=== PATIENT | female | born 1935 | race Caucasian/White ===

== ENCOUNTER 2016-05-11 08:00 | Outpatient (CLI) | payer MEDICARE, BC | END 2016-05-11 08:01 | disposition home or self-care (01) | DX: E11.9 Type 2 diabetes mellitus without complications (principal); Z79.899 Other long term (current) drug therapy ==

== ENCOUNTER 2016-11-06 10:44 | Outpatient (CLI) | payer MEDICARE, BC ==
[2016-11-06 13:16] LABS: BASOPHILS # (AUTO) 0.1 10^3/uL (0.0-0.1); BASOPHILS % (AUTO) 1.4 %; EOSINOPHILS # (AUTO) 0.5 10^3/uL (0.0-0.7); EOSINOPHILS % (AUTO) 6.9 %; HCT - HEMATOCRIT 38.5 % (37.0-47.0); HGB - HEMOGLOBIN 12.9 g/dL (12.0-16.0); LYMPHOCYTES # (AUTO) 2.9 10^3/uL (1.5-3.5); LYMPHOCYTES % (AUTO) 38.3 %; MEAN CORPUSCULAR HEMOGLOBIN 31.4 pg (27.0-31.0); MEAN CORPUSCULAR HGB CONC 33.6 g/dL (32.0-36.0); MEAN CORPUSCULAR VOLUME 93.4 fL (81.0-99.0); MEAN PLATELET VOLUME 8.2 fL (7.9-10.8); MONOCYTES # (AUTO) 0.6 10^3/uL (0.0-1.0); MONOCYTES % (AUTO) 8.4 %; NEUTROPHILS # (AUTO) 3.4 10^3/uL (1.5-6.6); RED BLOOD COUNT 4.12 10^6/uL (4.20-5.40); RED CELL DISTRIBUTION WIDTH 12.3 % (12.0-15.0); UNCORRECTED WHITE BLOOD COUNT 7.7 x10^3/uL; WHITE BLOOD COUNT 7.7 x10^3/uL (4.8-10.8)
[2016-11-06 13:36] LABS: ALBUMIN/GLOBULIN RATIO 0.9 (1.0-2.2); BILIRUBIN,TOTAL 0.5 mg/dL (0.2-1.0); BUN - BLOOD UREA NITROGEN 15 mg/dL (6-20); CALCIUM 9.4 mg/dL (8.5-10.3); CARBON DIOXIDE - CO2 26 mmol/L (21-32); CHLORIDE 104 mmol/L (101-111); CHOLESTEROL 121 mg/dL; CREATININE 0.5 mg/dL (0.4-1.0); GFR - MDRD 118 (>89); GLUCOSE 122 mg/dL (70-100); HDL CHOLESTEROL 40 mg/dL; LDL/HDL RATIO 1.3 (<4.4); POTASSIUM 3.9 mmol/L (3.5-5.0); SODIUM 139 mmol/L (135-145); TOTAL PROTEIN 8.1 g/dL (6.7-8.2); TRIGLYCERIDES 150 mg/dL; VLDL CHOLESTEROL 30 mg/dL
[2016-11-06 13:40] LABS: HEMOGLOBIN A1C 0.62 g/dL
== END 2016-11-06 10:45 | disposition home or self-care (01) ==
LOC: LAB.N 10:44
PROVIDERS: ATTEND Physician Assistant Medical
DX: M81.0 Age-related osteoporosis without current pathological fracture (principal); E11.9 Type 2 diabetes mellitus without complications; Z79.899 Other long term (current) drug therapy
CPT/HCPCS: 36415; 80053; 80061; 83036; 84443; 85025

== ENCOUNTER 2016-11-15 14:23 | Outpatient (CLI) | payer MEDICARE, BC | END 2016-11-15 14:24 | LOC: LAB.R 14:23 | PROVIDERS: ATTEND Physician Assistant Medical | DX: E11.9 Type 2 diabetes mellitus without complications (principal) | CPT/HCPCS: 82043 ==

== ENCOUNTER 2016-11-15 14:36 | Outpatient (CLI) | payer MEDICARE, BC ==
--- NOTE | 2016-11-16 09:02 | XRAY Report ---
TWO-VIEW CHEST: 11/15/2016 CLINICAL INDICATION: Abnormal breath sounds. COMPARISON: 07/22/2015 FINDINGS: Frontal and lateral views of the chest demonstrate a normal cardiac silhouette. Extensive pulmonary fibrosis is present. No effusion or pneumothorax is present. IMPRESSION: EXTENSIVE PULMONARY FIBROSIS. NO EVIDENCE OF ACUTE CARDIOPULMONARY DISEASE. JOB #: [id number] EXT JOB #:[id number]
== END 2016-11-15 14:37 | disposition home or self-care (01) ==
LOC: LAB 14:36 → DI 14:37
PROVIDERS: ATTEND Physician Assistant Medical
DX: J84.10 Pulmonary fibrosis, unspecified (principal)
CPT/HCPCS: 71020; 82043

== ENCOUNTER 2016-12-29 09:35 | Outpatient (CLI) | payer MEDICARE, BC ==
[2016-12-29 13:40] LABS: BASOPHILS # (AUTO) 0.1 10^3/uL (0.0-0.1); BASOPHILS % (AUTO) 1.5 %; EOSINOPHILS # (AUTO) 0.5 10^3/uL (0.0-0.7); EOSINOPHILS % (AUTO) 5.6 %; HCT - HEMATOCRIT 40.2 % (37.0-47.0); HGB - HEMOGLOBIN 13.3 g/dL (12.0-16.0); LYMPHOCYTES # (AUTO) 3.3 10^3/uL (1.5-3.5); LYMPHOCYTES % (AUTO) 37.2 %; MEAN CORPUSCULAR HGB CONC 33.1 g/dL (32.0-36.0); MEAN CORPUSCULAR VOLUME 93.9 fL (81.0-99.0); MEAN PLATELET VOLUME 8.6 fL (7.9-10.8); MONOCYTES # (AUTO) 0.7 10^3/uL (0.0-1.0); MONOCYTES % (AUTO) 8.4 %; NEUTROPHILS # (AUTO) 4.1 10^3/uL (1.5-6.6); NEUTROPHILS % (AUTO) 47.3 %; NUCLEATED RED BLOOD CELLS AUTO 0.1 /100WBC; RED BLOOD COUNT 4.28 10^6/uL (4.20-5.40); RED CELL DISTRIBUTION WIDTH 12.8 % (12.0-15.0); UNCORRECTED WHITE BLOOD COUNT 8.7 x10^3/uL; WHITE BLOOD COUNT 8.7 x10^3/uL (4.8-10.8)
[2016-12-29 14:18] LABS: BILIRUBIN,TOTAL 0.7 mg/dL (0.2-1.0); CALCIUM 9.4 mg/dL (8.5-10.3); CREATININE 0.6 mg/dL (0.4-1.0); POTASSIUM 4.2 mmol/L (3.5-5.0); TOTAL PROTEIN 8.1 g/dL (6.7-8.2)
== END 2016-12-29 09:36 | disposition home or self-care (01) ==
LOC: LAB.N 09:35
PROVIDERS: ATTEND Physician Assistant
DX: L29.8 Other pruritus (principal); Z71.89 Other specified counseling; L40.0 Psoriasis vulgaris; Z79.899 Other long term (current) drug therapy
CPT/HCPCS: 36415; 80053; 85025

== ENCOUNTER 2017-01-23 15:08 | Outpatient (CLI) | payer MEDICARE, BC ==
[2017-01-23 13:03] LABS: BASOPHILS # (AUTO) 0.1 10^3/uL (0.0-0.1); EOSINOPHILS # (AUTO) 0.5 10^3/uL (0.0-0.7); EOSINOPHILS % (AUTO) 4.6 %; HCT - HEMATOCRIT 38.3 % (37.0-47.0); HGB - HEMOGLOBIN 12.9 g/dL (12.0-16.0); LYMPHOCYTES # (AUTO) 4.4 10^3/uL (1.5-3.5); LYMPHOCYTES % (AUTO) 45.3 %; MEAN CORPUSCULAR HEMOGLOBIN 31.4 pg (27.0-31.0); MEAN CORPUSCULAR HGB CONC 33.8 g/dL (32.0-36.0); MEAN CORPUSCULAR VOLUME 92.9 fL (81.0-99.0); MEAN PLATELET VOLUME 8.3 fL (7.9-10.8); MONOCYTES # (AUTO) 0.8 10^3/uL (0.0-1.0); MONOCYTES % (AUTO) 8.5 %; NEUTROPHILS % (AUTO) 40.6 %; NUCLEATED RED BLOOD CELLS AUTO 0.1 /100WBC; RED BLOOD COUNT 4.12 10^6/uL (4.20-5.40); RED CELL DISTRIBUTION WIDTH 12.6 % (12.0-15.0); UNCORRECTED WHITE BLOOD COUNT 9.8 x10^3/uL; WHITE BLOOD COUNT 9.8 x10^3/uL (4.8-10.8)
[2017-01-23 13:04] LABS: ALBUMIN/GLOBULIN RATIO 0.9 (1.0-2.2); BILIRUBIN,TOTAL 0.8 mg/dL (0.2-1.0); CALCIUM 9.4 mg/dL (8.5-10.3); CREATININE 0.6 mg/dL (0.4-1.0); POTASSIUM 3.8 mmol/L (3.5-5.0); TOTAL PROTEIN 8.3 g/dL (6.7-8.2)
== END 2017-01-23 15:09 | disposition home or self-care (01) ==
LOC: LAB.N 15:08
PROVIDERS: ATTEND Physician Assistant
DX: L29.8 Other pruritus (principal); Z71.89 Other specified counseling; L40.0 Psoriasis vulgaris; Z79.899 Other long term (current) drug therapy
CPT/HCPCS: 36415; 80053; 85025

== ENCOUNTER 2017-02-26 09:43 | Outpatient (CLI) | payer MEDICARE, BC ==
[2017-02-26 13:11] LABS: BASOPHILS # (AUTO) 0.1 10^3/uL (0.0-0.1); EOSINOPHILS # (AUTO) 0.6 10^3/uL (0.0-0.7); EOSINOPHILS % (AUTO) 6.5 %; HCT - HEMATOCRIT 37.9 % (37.0-47.0); HGB - HEMOGLOBIN 12.6 g/dL (12.0-16.0); LYMPHOCYTES # (AUTO) 3.5 10^3/uL (1.5-3.5); MEAN CORPUSCULAR HEMOGLOBIN 31.5 pg (27.0-31.0); MEAN CORPUSCULAR HGB CONC 33.2 g/dL (32.0-36.0); MEAN CORPUSCULAR VOLUME 94.9 fL (81.0-99.0); MEAN PLATELET VOLUME 8.2 fL (7.9-10.8); MONOCYTES # (AUTO) 0.6 10^3/uL (0.0-1.0); MONOCYTES % (AUTO) 6.9 %; NEUTROPHILS % (AUTO) 45.6 %; NUCLEATED RED BLOOD CELLS AUTO 0.1 /100WBC; RED BLOOD COUNT 3.99 10^6/uL (4.20-5.40); RED CELL DISTRIBUTION WIDTH 12.8 % (12.0-15.0); UNCORRECTED WHITE BLOOD COUNT 8.8 x10^3/uL; WHITE BLOOD COUNT 8.8 x10^3/uL (4.8-10.8)
[2017-02-26 13:35] LABS: BILIRUBIN,TOTAL 0.6 mg/dL (0.2-1.0); CALCIUM 9.2 mg/dL (8.5-10.3); CREATININE 0.6 mg/dL (0.4-1.0); POTASSIUM 3.8 mmol/L (3.5-5.0); TOTAL PROTEIN 7.9 g/dL (6.7-8.2)
== END 2017-02-26 09:44 ==
LOC: LAB.N 09:43
PROVIDERS: ATTEND Physician Assistant
DX: L29.8 Other pruritus (principal); Z71.89 Other specified counseling; L40.0 Psoriasis vulgaris; Z79.899 Other long term (current) drug therapy
CPT/HCPCS: 36415; 80053; 85025

== ENCOUNTER 2017-03-26 10:05 | Outpatient (CLI) | payer MEDICARE, BC ==
[2017-03-26 13:24] LABS: BASOPHILS # (AUTO) 0.1 10^3/uL (0.0-0.1); BASOPHILS % (AUTO) 1.3 %; EOSINOPHILS # (AUTO) 0.6 10^3/uL (0.0-0.7); EOSINOPHILS % (AUTO) 6.7 %; HCT - HEMATOCRIT 37.6 % (37.0-47.0); HGB - HEMOGLOBIN 12.8 g/dL (12.0-16.0); LYMPHOCYTES # (AUTO) 3.2 10^3/uL (1.5-3.5); LYMPHOCYTES % (AUTO) 38.9 %; MEAN CORPUSCULAR HEMOGLOBIN 32.5 pg (27.0-31.0); MEAN CORPUSCULAR VOLUME 95.7 fL (81.0-99.0); MEAN PLATELET VOLUME 8.5 fL (7.9-10.8); MONOCYTES # (AUTO) 0.6 10^3/uL (0.0-1.0); MONOCYTES % (AUTO) 6.9 %; NEUTROPHILS # (AUTO) 3.8 10^3/uL (1.5-6.6); NEUTROPHILS % (AUTO) 46.2 %; RED BLOOD COUNT 3.93 10^6/uL (4.20-5.40); RED CELL DISTRIBUTION WIDTH 13.2 % (12.0-15.0); UNCORRECTED WHITE BLOOD COUNT 8.3 x10^3/uL; WHITE BLOOD COUNT 8.3 x10^3/uL (4.8-10.8)
[2017-03-26 13:59] LABS: ALBUMIN/GLOBULIN RATIO 0.9 (1.0-2.2); BILIRUBIN,TOTAL 0.5 mg/dL (0.2-1.0); CALCIUM 9.2 mg/dL (8.5-10.3); CREATININE 0.6 mg/dL (0.4-1.0); POTASSIUM 3.6 mmol/L (3.5-5.0); TOTAL PROTEIN 8.2 g/dL (6.7-8.2)
== END 2017-03-26 10:06 | disposition home or self-care (01) ==
LOC: LAB.N 10:05
PROVIDERS: ATTEND Physician Assistant
DX: L29.8 Other pruritus (principal); Z71.89 Other specified counseling; L40.0 Psoriasis vulgaris; Z79.899 Other long term (current) drug therapy
CPT/HCPCS: 36415; 80053; 85025

== ENCOUNTER 2017-05-01 08:00 | Outpatient (CLI) | payer MEDICARE, BC ==
[2017-05-01 12:40] LABS: BASOPHILS # (AUTO) 0.1 10^3/uL (0.0-0.1); BASOPHILS % (AUTO) 1.1 %; EOSINOPHILS # (AUTO) 0.5 10^3/uL (0.0-0.7); EOSINOPHILS % (AUTO) 6.6 %; HGB - HEMOGLOBIN 12.7 g/dL (12.0-16.0); LYMPHOCYTES # (AUTO) 2.9 10^3/uL (1.5-3.5); LYMPHOCYTES % (AUTO) 36.7 %; MEAN CORPUSCULAR HEMOGLOBIN 32.7 pg (27.0-31.0); MEAN CORPUSCULAR VOLUME 96.1 fL (81.0-99.0); MONOCYTES # (AUTO) 0.6 10^3/uL (0.0-1.0); MONOCYTES % (AUTO) 6.9 %; NEUTROPHILS # (AUTO) 3.9 10^3/uL (1.5-6.6); NEUTROPHILS % (AUTO) 48.7 %; PLT - PLATELET COUNT 285 10^3/uL (130-450); RED BLOOD COUNT 3.88 10^6/uL (4.20-5.40)
[2017-05-01 13:24] LABS: BILIRUBIN,TOTAL 0.6 mg/dL (0.2-1.0); CREATININE 0.6 mg/dL (0.4-1.0)
== END 2017-05-01 08:01 | disposition home or self-care (01) ==
LOC: LAB.N 08:00
PROVIDERS: ATTEND Physician Assistant
DX: L29.8 Other pruritus (principal); Z71.89 Other specified counseling; L40.0 Psoriasis vulgaris; Z79.899 Other long term (current) drug therapy
CPT/HCPCS: 36415; 80053; 85025

== ENCOUNTER 2017-05-30 09:43 | Outpatient (CLI) | payer MEDICARE, BC ==
[2017-05-30 13:13] LABS: BASOPHILS # (AUTO) 0.1 10^3/uL (0.0-0.1); BASOPHILS % (AUTO) 1.3 %; EOSINOPHILS # (AUTO) 0.5 10^3/uL (0.0-0.7); EOSINOPHILS % (AUTO) 6.7 %; HGB - HEMOGLOBIN 13.5 g/dL (12.0-16.0); LYMPHOCYTES # (AUTO) 2.4 10^3/uL (1.5-3.5); LYMPHOCYTES % (AUTO) 30.2 %; MEAN CORPUSCULAR HEMOGLOBIN 32.6 pg (27.0-31.0); MEAN CORPUSCULAR VOLUME 95.7 fL (81.0-99.0); MEAN PLATELET VOLUME 8.1 fL (7.9-10.8); MONOCYTES # (AUTO) 0.5 10^3/uL (0.0-1.0); MONOCYTES % (AUTO) 6.1 %; NEUTROPHILS # (AUTO) 4.4 10^3/uL (1.5-6.6); NEUTROPHILS % (AUTO) 55.7 %; PLT - PLATELET COUNT 298 10^3/uL (130-450); RED BLOOD COUNT 4.15 10^6/uL (4.20-5.40); RED CELL DISTRIBUTION WIDTH 12.6 % (12.0-15.0); WHITE BLOOD COUNT 7.9 x10^3/uL (4.8-10.8)
[2017-05-30 13:51] LABS: BILIRUBIN,TOTAL 0.7 mg/dL (0.2-1.0); CALCIUM 9.7 mg/dL (8.5-10.3); CREATININE 0.5 mg/dL (0.4-1.0); TOTAL PROTEIN 8.2 g/dL (6.7-8.2)
== END 2017-05-30 09:44 | disposition home or self-care (01) ==
LOC: LAB.N 09:43
PROVIDERS: ATTEND Physician Assistant
DX: L29.8 Other pruritus (principal); L40.0 Psoriasis vulgaris; Z79.899 Other long term (current) drug therapy; Z71.89 Other specified counseling
CPT/HCPCS: 36415; 80053; 85025

== ENCOUNTER 2017-06-25 08:00 | Outpatient (CLI) | payer MEDICARE, BC ==
[2017-06-25 18:46] LABS: BASOPHILS # (AUTO) 0.1 10^3/uL (0.0-0.1); BASOPHILS % (AUTO) 1.1 %; EOSINOPHILS # (AUTO) 0.5 10^3/uL (0.0-0.7); EOSINOPHILS % (AUTO) 6.1 %; HGB - HEMOGLOBIN 13.2 g/dL (12.0-16.0); LYMPHOCYTES # (AUTO) 2.5 10^3/uL (1.5-3.5); LYMPHOCYTES % (AUTO) 29.9 %; MEAN CORPUSCULAR HEMOGLOBIN 31.7 pg (27.0-31.0); MEAN CORPUSCULAR HGB CONC 32.4 g/dL (32.0-36.0); MEAN PLATELET VOLUME 8.3 fL (7.9-10.8); MONOCYTES # (AUTO) 0.7 10^3/uL (0.0-1.0); MONOCYTES % (AUTO) 8.4 %; NEUTROPHILS # (AUTO) 4.5 10^3/uL (1.5-6.6); NEUTROPHILS % (AUTO) 54.5 %; PLT - PLATELET COUNT 293 10^3/uL (130-450); RED BLOOD COUNT 4.17 10^6/uL (4.20-5.40); RED CELL DISTRIBUTION WIDTH 12.9 % (12.0-15.0); WHITE BLOOD COUNT 8.2 x10^3/uL (4.8-10.8)
[2017-06-25 19:23] LABS: ALBUMIN 3.9 g/dL (3.2-5.5); ALBUMIN/GLOBULIN RATIO 0.9 (1.0-2.2); BILIRUBIN,TOTAL 0.5 mg/dL (0.2-1.0); CALCIUM 9.8 mg/dL (8.5-10.3); CREATININE 0.5 mg/dL (0.4-1.0); TOTAL PROTEIN 8.3 g/dL (6.7-8.2)
== END 2017-06-25 08:01 | disposition home or self-care (01) ==
LOC: LAB.N 08:00
PROVIDERS: ATTEND Physician Assistant
DX: L29.8 Other pruritus (principal); L40.0 Psoriasis vulgaris; Z71.89 Other specified counseling; Z79.899 Other long term (current) drug therapy
CPT/HCPCS: 36415; 80053; 85025

== ENCOUNTER 2017-07-05 08:00 | Outpatient (CLI) | payer MEDICARE, BC | END 2017-07-05 08:01 | disposition home or self-care (01) | LOC: LAB.R 08:00 | PROVIDERS: ATTEND Physician Assistant Medical | DX: N30.00 Acute cystitis without hematuria (principal) | CPT/HCPCS: 87086 ==

== ENCOUNTER 2017-07-05 15:09 | Outpatient (CLI) | payer MEDICARE, BC ==
[2017-07-05 15:34] LABS: BASOPHILS # (AUTO) 0.1 10^3/uL (0.0-0.1); BASOPHILS % (AUTO) 1.2 %; EOSINOPHILS # (AUTO) 0.2 10^3/uL (0.0-0.7); EOSINOPHILS % (AUTO) 2.1 %; HGB - HEMOGLOBIN 13.5 g/dL (12.0-16.0); LYMPHOCYTES # (AUTO) 2.7 10^3/uL (1.5-3.5); LYMPHOCYTES % (AUTO) 28.6 %; MEAN CORPUSCULAR HEMOGLOBIN 32.3 pg (27.0-31.0); MEAN CORPUSCULAR HGB CONC 33.7 g/dL (32.0-36.0); MEAN CORPUSCULAR VOLUME 95.7 fL (81.0-99.0); MEAN PLATELET VOLUME 7.4 fL (7.9-10.8); MONOCYTES # (AUTO) 0.7 10^3/uL (0.0-1.0); MONOCYTES % (AUTO) 6.9 %; NEUTROPHILS # (AUTO) 5.8 10^3/uL (1.5-6.6); NEUTROPHILS % (AUTO) 61.2 %; PLT - PLATELET COUNT 321 10^3/uL (130-450); RED BLOOD COUNT 4.17 10^6/uL (4.20-5.40); RED CELL DISTRIBUTION WIDTH 13.1 % (12.0-15.0); WHITE BLOOD COUNT 9.5 x10^3/uL (4.8-10.8)
[2017-07-05 15:49] LABS: ALBUMIN 4.3 g/dL (3.2-5.5); ALKALINE PHOSPHATASE 54 IU/L (42-121); ALT ALANINE AMINOTRANSFERASE 23 IU/L (10-60); AST ASPARTATE AMINOTRANSFERASE 28 IU/L (10-42); BILIRUBIN,TOTAL 0.5 mg/dL (0.2-1.0); BUN - BLOOD UREA NITROGEN 14 mg/dL (6-20); CALCIUM 9.1 mg/dL (8.5-10.3); CARBON DIOXIDE - CO2 22 mmol/L (21-32); CHLORIDE 103 mmol/L (101-111); CREATININE 0.5 mg/dL (0.4-1.0); GFR - MDRD 118 (>89); GLUCOSE 111 mg/dL (70-100); SODIUM 136 mmol/L (135-145); TOTAL PROTEIN 8.4 g/dL (6.7-8.2)
[2017-07-05 15:51] LABS: HB2 TOTAL 14.5 g/dL; HEMOGLOBIN A1C 0.7 g/dL; HEMOGLOBIN A1C % 6.6 % (4.6-6.2)
[2017-07-05 15:56] LABS: CRP - C-REACTIVE PROTEIN < 1.0 mg/dL (0-1.0)
--- NOTE | 2017-07-05 17:46 | CT Report ---
CT BRAIN WITHOUT CONTRAST: 07/05/2017 CLINICAL INDICATION: Dizziness, slurred speech. TECHNIQUE: Axial CT images of the brain were obtained without intravenous contrast. In accordance with CT protocol optimization, one or more of the following dose reduction techniques were utilized for this exam: Automated exposure control, adjustment of mA and/or KV based on patient size, or use of iterative reconstructive technique. No previous CT is available for comparison. FINDINGS: The ventricles and sulci are normal in size, shape and configuration. The basilar cisterns are patent. There is no evidence of hemorrhage, mass effect, or midline shift. The visualized orbital contents and paranasal sinuses are unremarkable. IMPRESSION: NORMAL CT OF THE HEAD WITHOUT CONTRAST. TD: 07/05/2017 17:45
--- NOTE | 2017-07-05 17:51 | XRAY Report ---
TWO VIEW CHEST: 07/05/2017 CLINICAL INDICATION: Wheezing, weakness. COMPARISON: 11/15/2016 FINDINGS: Frontal and lateral views of the chest demonstrate a normal cardiac silhouette. Extensive pulmonary fibrosis is again seen. There are increasing parenchymal opacities in the lateral right upper lobe and lateral left upper lobe, suspicious for superimposed infiltrates. No effusion or pneumothorax is present. IMPRESSION: POSSIBLE PATCHY SUPERIMPOSED INFILTRATES IN THE UPPER LOBES, WITH EXTENSIVE BACKGROUND FIBROSIS. TD: 07/05/2017 17:50
== END 2017-07-05 15:10 | disposition home or self-care (01) ==
LOC: DI 15:09
PROVIDERS: ATTEND Physician Assistant Medical
DX: R06.2 Wheezing (principal); R47.81 Slurred speech; R42 Dizziness and giddiness; Z79.899 Other long term (current) drug therapy; E11.9 Type 2 diabetes mellitus without complications; J84.10 Pulmonary fibrosis, unspecified; N30.00 Acute cystitis without hematuria
CPT/HCPCS: 36415; 70450; 71046; 80053; 83036; 84443; 85025; 85651; 86140; 87086

== ENCOUNTER 2017-07-14 21:25 | Outpatient (CLI) | payer MEDICARE, BC | END 2017-07-14 21:26 | disposition critical access hospital (66) | LOC: EMS 21:25 | PROVIDERS: ATTEND Surgery | DX: R42 Dizziness and giddiness (principal) | CPT/HCPCS: A0425; A0429 ==

== ENCOUNTER 2017-07-14 21:39 | Emergency (ER) | payer MEDICARE, BC ==
--- NOTE | 2017-07-14 22:27 | ED Physician Documentation ---
History of Present Illness - Stated complaint Stated Complaint: DIZZY - Chief complaint Chief Complaint: Neuro - History obtained from History obtained from: Patient - History of Present Illness Timing: Today Pain level max: 0 Pain level now: 0 Improved by: lying still, eyes closed Worsened by: moving head - Additonal information Additional information: patient complains of sudden onset of dizziness associated with nausea and vomiting. She feels as if both ears are plugged, and is experiencing ringing in the ears. Symptoms started to three hours prior to arrival. Denies history of similar symptoms. Review of Systems Constitutional: denies: Fever Eyes: reports: Reviewed and negative Ears: reports: Loss of hearing (decreased, like theyre clogged (per patient)) , Tinnitus/ringing. 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 - Present Medications Home Medications: Ambulatory Orders Medication Instructions Recorded Confirmed Aspirin [Aspir-Low] 81 mg DAILY 07/22/15 07/14/17 Desipramine HCl 0.5 tab TID 07/22/15 10/23/15 Metoprolol Tartrate 25 mg DAILY 07/22/15 07/14/17 Multivitamin [Multivitamins] 1 tab DAILY 07/22/15 10/23/15 Omeprazole [PriLOSEC] 20 mg DAILY 07/22/15 07/14/17 Cephalexin [Keflex] 500 mg PO QID 7 Days capsule 10/23/15 Atorvastatin [Lipitor] 20 mg 07/14/17 Desipramine HCl [Desipramine HCl] 1 tab PO DAILY 07/14/17 07/14/17 metFORMIN [Glucophage] 500 mg PO DAILY 07/14/17 07/14/17 Meclizine [Antivert] 25 mg PO Q6H PRN #20 tablet 07/15/17 Ondansetron Odt [Zofran] 4 mg TL Q6H PRN #14 tablet 07/15/17 - Allergies Allergies/Adverse Reactions: Allergies Allergy/AdvReac Type Severity Reaction Status Date / Time codeine Allergy Unknown Verified 10/23/15 18:07 Penicillins Allergy Unknown Verified 10/23/15 18:07 sulfamethoxazole Allergy Unknown Verified 10/23/15 18:07 [From ] trimethoprim [From ] Allergy Unknown Verified 10/23/15 18:07 - Social History Does the pt smoke?: No Smoking Status: Former smoker Does the pt drink ETOH?: Yes Does the pt have substance abuse?: No PD ED PE NORMAL - Vitals Vital signs reviewed: Yes - General General: Alert and oriented X 3, Well developed/nourished, Other (keeps eyes closed throughout most of H&P and keeps head still) - HEENT HEENT: PERRL, EOMI, Ears normal, Moist mucous membranes, Pharynx benign, Other ( several beats of nystagmus with rightward gaze) - Neck Neck: Supple, no meningeal sign - Cardiac Cardiac: RRR, No murmur - Respiratory Respiratory: No respiratory distress, Clear bilaterally Results - Vitals Vitals: Oxygen O2 Source Room air - EKG (time done) No standard instances Rate: Rate (enter#) (87) Rhythm: NSR [place]: LAD Intervals: Normal OR QRS: Normal Ischemia: Normal ST segments, Q waves (II, aVF) PD MEDICAL DECISION MAKING - ED course Complexity details: reviewed results, re-evaluated patient, considered differential, d/w patient ED course: significant improvement after antivert and zofran. she was able to open eyes, move her head, and ambulate with minimal assistance to bathroom. given repeat doses of both medications for mild residual symptoms prior to discharge Departure - Departure Disposition: 01 Home, Self Care Clinical Impression: Vertigo Condition: Good Instructions: Meclizine, ED Vertigo Unspecified Prescriptions: Meclizine [Antivert] 25 mg PO Q6H PRN #20 tablet PRN Reason: Vertigo Ondansetron Odt [Zofran] 4 mg TL Q6H PRN #14 tablet PRN Reason: Nausea / Vomiting Comments: Follow up with your primary care provider as scheduled. Discharge Date/Time: 07/15/17 00:44
[2017-07-14] MEDS ORDERED: ONDANSETRON ODT 4 MG TABLET TL STA (22:51)
[2017-07-14] MEDS ORDERED: MECLIZINE 12.5 MG TABLET PO STA (22:51)
[2017-07-15] MEDS ORDERED: ONDANSETRON ODT 4 MG TABLET TL STA (00:31)
[2017-07-15] MEDS ORDERED: MECLIZINE 12.5 MG TABLET PO STA (00:31)
[2017-07-15 00:44] VITALS: BP 147/78
== END 2017-07-15 00:44 | disposition home or self-care (01) ==
LOC: EDUNIT# → ED 21:39
DX: R42 Dizziness and giddiness (principal); I10 Essential (primary) hypertension; E78.00 Pure hypercholesterolemia, unspecified; Z79.82 Long term (current) use of aspirin; Z87.891 Personal history of nicotine dependence
CPT/HCPCS: 93005; 99283; A9270; Q0162

== ENCOUNTER 2017-07-20 16:43 | Outpatient (CLI) | payer MEDICARE, BC ==
--- NOTE | 2017-07-21 17:24 | Ultrasound Report ---
EXAM: CAROTID DOPPLER ULTRASOUND EXAM DATE: 07/20/2017 05:08 PM. CLINICAL HISTORY: Slurred speech, dizziness. COMPARISON: CT head without contrast 07/05/2017. TECHNIQUE: Real-time sonographic vascular imaging was performed by the unisaw operator through the caroti d arterial system with a linear transducer utilizing color-flow, Doppler flow and spectral analysis. Multiple novelties sales representative static images were saved for review. FINDINGS: Right: No appreciable soft or calcific plaque involving the CCA or ICA. Minimal calcific plaque prese nt within the ECA which is patent. Flow within the vertebral artery is antegrade. Left: Minimal calcific and soft plaque within the common carotid artery, predominating near the carot id bulb. No significant plaque within the internal carotid artery. The ECA is patent. Flow within the vertebral artery is antegrade. RIGHT: RCCA Prox: PSV 91.8 cm/sec. RCCA Dist: PSV 87 cm/sec, EDV 21 cm/sec. RECA: PSV 114 cm/sec. R Bulb: PSV 79 cm/sec, EDV 16 cm/sec, ICA/CCA ratio 0.09. KJ Prox: PSV 77 cm/sec, EDV 24 cm/sec, ICA/CCA ratio 0.88. KJ Mid: PSV 81 cm/sec, EDV 25 cm/sec, ICA/CCA ratio 0.93. KJ Dist: PSV 65 cm/sec, EDV 24 cm/sec, ICA/CCA ratio 0.74. RVA: PSV 87 cm/sec. RVA flow direction: Antegrade. LEFT: LCCA Prox: PSV 55077 cm/sec. LCCA Dist: PSV 89 cm/sec, EDV 23 cm/sec. LECA: PSV 109 cm/sec. L Bulb: PSV 79 cm/sec, EDV 22 cm/sec, ICA/CCA ratio 0.88. LICA Prox: PSV 87 cm/sec, EDV 28 cm/sec, ICA/CCA ratio 0.97. LICA Mid: PSV 103 cm/sec, EDV 35 cm/sec, ICA/CCA ratio 1.15. LICA Dist: PSV 82 cm/sec, EDV 27 cm/sec, ICA/CCA ratio 0.92. LVA: PSV 88 cm/sec. LVA flow direction: Antegrade. Other: Incidental note is made of lack of flow within the right internal jugular vein which appears a ttenuated with hyperechoic material within the lumen suggesting chronic thrombosis. IMPRESSION: 1. No hemodynamically significant carotid artery stenoses. 2. 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 Validated velocity measurements with angiographic measurements and velocity criteria are extrapolated from diameter data as defined by the Society of Radiologists in Ultrasound Consensus Conference Radi ology 2003; 229;340-346. [facility] Referring Provider Line: [phone] SITE ID: [id number]
== END 2017-07-20 16:44 | disposition home or self-care (01) ==
LOC: DI 16:43
PROVIDERS: ATTEND Physician Assistant Medical
DX: R47.81 Slurred speech (principal); R42 Dizziness and giddiness
CPT/HCPCS: 93880

== ENCOUNTER 2017-07-27 09:29 | Outpatient (CLI) | payer MEDICARE, BC | END 2017-07-27 09:30 | disposition home or self-care (01) | LOC: LAB.N 09:29 | PROVIDERS: ATTEND Physician Assistant Medical | DX: I82.C21 Chronic embolism and thrombosis of right internal jugular vein (principal); Z79.01 Long term (current) use of anticoagulants | CPT/HCPCS: 85610 ==

== ENCOUNTER 2017-07-31 08:00 | Outpatient (CLI) | payer MEDICARE, BC | END 2017-07-31 08:01 | LOC: LAB.N 08:00 | PROVIDERS: ATTEND Physician Assistant Medical | DX: I82.C21 Chronic embolism and thrombosis of right internal jugular vein (principal); Z79.01 Long term (current) use of anticoagulants | CPT/HCPCS: 85610 ==

== ENCOUNTER 2017-08-07 08:00 | Outpatient (CLI) | payer MEDICARE, BC | END 2017-08-07 08:01 | disposition home or self-care (01) | LOC: LAB.N 08:00 | PROVIDERS: ATTEND Physician Assistant Medical | DX: I82.C21 Chronic embolism and thrombosis of right internal jugular vein (principal); Z79.01 Long term (current) use of anticoagulants | CPT/HCPCS: 85610 ==

== ENCOUNTER 2017-08-14 13:47 | Outpatient (CLI) | payer MEDICARE, BC | END 2017-08-14 13:48 | LOC: LAB.N 13:47 | PROVIDERS: ATTEND Physician Assistant Medical | DX: I82.C21 Chronic embolism and thrombosis of right internal jugular vein (principal); Z79.01 Long term (current) use of anticoagulants | CPT/HCPCS: 85610 ==

== ENCOUNTER 2017-08-17 13:46 | Outpatient (CLI) | payer MEDICARE, BC ==
[2017-08-17 14:09] LABS: CREATININE 0.5 mg/dL (0.4-1.0)
[2017-08-17] MEDS ORDERED: IOPAMIDOL-300 50 ML VIAL ONE (14:17)
[2017-08-17] MEDS ORDERED: IOPAMIDOL-300 100 ML VIAL ONE (14:17)
[2017-08-17] MEDS ORDERED: IOPAMIDOL-300 100 ML VIAL IVP ONE (15:46)
[2017-08-17] MEDS ORDERED: IOPAMIDOL-300 50 ML VIAL PO ONE (15:46)
--- NOTE | 2017-08-17 19:09 | CT Report ---
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 TECHNIQUE: Axial CT images of the chest were obtained with 100 mL Isovue 300 intravenously. In accordance with CT protocol optimization, one or more of the following dose reduction techniques were utilized for this exam: Automated exposure control, adjustment of mA and/or KV based on patient size, or use of iterative reconstructive technique. No previous chest CT is available for comparison. FINDINGS: The heart and great vessels demonstrate mild atherosclerotic calcification. No hilar or mediastinal lymphadenopathy is present. The lungs demonstrate extensive peripheral fibrosis. No suspicious pulmonary nodule or mass lesion is appreciated. No effusion or pneumothorax is present. Osseous structures demonstrate degenerative changes. IMPRESSION: EXTENSIVE PULMONARY FIBROSIS. NO SUSPICIOUS PULMONARY NODULE OR MASS LESION IS IDENTIFIED. TD: 08/17/2017 19:08
--- NOTE | 2017-08-17 19:13 | CT Report ---
CT ABDOMEN AND PELVIS WITH CONTRAST: 08/17/2017 CLINICAL INDICATION: Chronic right jugular venous thrombus. TECHNIQUE: Axial CT images of the abdomen and pelvis were obtained with 100 mL Isovue 300 intravenously as well as oral contrast. In accordance with CT protocol optimization, one or more of the following dose reduction techniques were utilized for this exam: Automated exposure control, adjustment of mA and/or KV based on patient size, or use of iterative reconstructive technique. No previous CT is available. ABDOMEN: The liver, spleen, pancreas and adrenal glands are unremarkable. The kidneys demonstrate small cortical cysts. No hydronephrosis or nephrolithiasis is seen. The gallbladder is not dilated. No bowel dilatation, free gas, or free fluid is present. No abdominal adenopathy is seen. PELVIS: Sigmoid diverticulosis is present, without CT evidence of diverticulitis. No pelvic adenopathy or free fluid is present. Osseous structures demonstrate degenerative changes. IMPRESSION: INCIDENTAL RENAL CYSTS. NO EVIDENCE OF MALIGNANCY. TD: 08/17/2017 19:13
== END 2017-08-17 13:47 | disposition home or self-care (01) ==
LOC: LAB 13:46 → DI 13:47
PROVIDERS: ATTEND Physician Assistant Medical
DX: I82.C21 Chronic embolism and thrombosis of right internal jugular vein (principal); J84.10 Pulmonary fibrosis, unspecified; R63.4 Abnormal weight loss
CPT/HCPCS: 36415; 71260; 74177; 82565; Q9967

== ENCOUNTER 2017-08-28 08:00 | Outpatient (CLI) | payer MEDICARE, BC | END 2017-08-28 08:01 | disposition home or self-care (01) | LOC: LAB.N 08:00 | PROVIDERS: ATTEND Physician Assistant Medical | DX: I82.C21 Chronic embolism and thrombosis of right internal jugular vein (principal); Z79.01 Long term (current) use of anticoagulants | CPT/HCPCS: 85610 ==

== ENCOUNTER 2017-09-25 08:00 | Outpatient (CLI) | payer MEDICARE, BC | END 2017-09-25 08:01 | LOC: LAB.N 08:00 | PROVIDERS: ATTEND Physician Assistant Medical | DX: I82.C21 Chronic embolism and thrombosis of right internal jugular vein (principal); Z79.01 Long term (current) use of anticoagulants | CPT/HCPCS: 85610 ==

== ENCOUNTER 2017-10-02 08:00 | Outpatient (CLI) | payer MEDICARE, BC | END 2017-10-02 08:01 | disposition home or self-care (01) | LOC: LAB.N 08:00 | PROVIDERS: ATTEND Physician Assistant Medical | DX: I82.C21 Chronic embolism and thrombosis of right internal jugular vein (principal); Z79.01 Long term (current) use of anticoagulants | CPT/HCPCS: 85610 ==

== ENCOUNTER 2017-10-23 10:25 | Outpatient (CLI) | payer MEDICARE, BC | END 2017-10-23 10:26 | disposition home or self-care (01) | LOC: LAB.N 10:25 | PROVIDERS: ATTEND Physician Assistant Medical | DX: I82.C21 Chronic embolism and thrombosis of right internal jugular vein (principal); Z79.01 Long term (current) use of anticoagulants | CPT/HCPCS: 85610 ==

== ENCOUNTER 2017-10-25 16:39 | Outpatient (CLI) | payer MEDICARE, BC ==
--- NOTE | 2017-10-29 16:03 | Ultrasound Report ---
Procedure Date: 10/25/2017 Accession Number: [id number] / [id number] Procedure: US - Duplex Ext Veins Right CPT Code: FULL RESULT: EXAM: Duplex Ext Veins Right DATE: 10/25/2017 6:30 PM CLINICAL HISTORY: DVT OF RIGHT JU VEIN TECHNIQUE: Grayscale, spectral and color Doppler images were obtained. COMPARISON: None FINDINGS: The right subclavian, axillary, cephalic, brachial and basilic veins are patent by color Doppler and spectral Doppler when augmented. With the exception of the subclavian vein which could not be compressed these veins are also patent by compression. No nonocclusive thrombus is identified. Incidentally noted is a cystic structure measuring up to 0.3 cm without internal vascularity in the right arm likely of no clinical significance. The right internal jugular vein could not be adequately assessed for nonocclusive thrombus. IMPRESSION: No deep venous sclerosis in the right arm. Inadequate visualization of the right internal jugular vein. The patient will return for further imaging at no additional charge for completion interrogation of the right internal jugular vein by the interpreting radiologist.
== END 2017-10-25 16:40 | disposition home or self-care (01) ==
LOC: DI 16:39
PROVIDERS: ATTEND Internal Medicine
DX: I82.C11 Acute embolism and thrombosis of right internal jugular vein (principal)

== ENCOUNTER 2017-10-30 08:00 | Outpatient (CLI) | payer MEDICARE, BC | END 2017-10-30 08:01 | disposition home or self-care (01) | LOC: LAB.N 08:00 | PROVIDERS: ATTEND Physician Assistant Medical | DX: I82.C21 Chronic embolism and thrombosis of right internal jugular vein (principal); Z79.01 Long term (current) use of anticoagulants | CPT/HCPCS: 85610 ==

== ENCOUNTER 2017-11-01 11:42 | Outpatient (CLI) | payer MEDICARE, BC | END 2017-11-01 11:43 | disposition home or self-care (01) | LOC: DI 11:42 | PROVIDERS: ATTEND Internal Medicine | DX: I82.C21 Chronic embolism and thrombosis of right internal jugular vein (principal) ==

== ENCOUNTER 2017-11-06 08:00 | Outpatient (CLI) | payer MEDICARE, BC | END 2017-11-06 08:01 | disposition home or self-care (01) | LOC: LAB.N 08:00 | PROVIDERS: ATTEND Physician Assistant Medical | DX: I82.C21 Chronic embolism and thrombosis of right internal jugular vein (principal); Z79.01 Long term (current) use of anticoagulants | CPT/HCPCS: 85610 ==

== ENCOUNTER 2017-12-04 10:48 | Outpatient (CLI) | payer MEDICARE, BC | END 2017-12-04 10:49 | disposition home or self-care (01) | LOC: LAB.N 10:48 | PROVIDERS: ATTEND Physician Assistant Medical | DX: I82.C21 Chronic embolism and thrombosis of right internal jugular vein (principal); Z79.01 Long term (current) use of anticoagulants | CPT/HCPCS: 85610 ==

== ENCOUNTER 2018-01-03 08:00 | Outpatient (CLI) | payer MEDICARE, BC ==
[2018-01-03 13:06] LABS: BASOPHILS # (AUTO) 0.1 10^3/uL (0.0-0.1); EOSINOPHILS # (AUTO) 0.6 10^3/uL (0.0-0.7); EOSINOPHILS % (AUTO) 6.5 %; HGB - HEMOGLOBIN 13.9 g/dL (12.0-16.0); LYMPHOCYTES # (AUTO) 2.6 10^3/uL (1.5-3.5); LYMPHOCYTES % (AUTO) 29.9 %; MEAN CORPUSCULAR HEMOGLOBIN 32.2 pg (27.0-31.0); MEAN CORPUSCULAR HGB CONC 33.8 g/dL (32.0-36.0); MEAN CORPUSCULAR VOLUME 95.1 fL (81.0-99.0); MEAN PLATELET VOLUME 8.4 fL (7.9-10.8); MONOCYTES # (AUTO) 0.6 10^3/uL (0.0-1.0); MONOCYTES % (AUTO) 6.9 %; NEUTROPHILS # (AUTO) 4.9 10^3/uL (1.5-6.6); NEUTROPHILS % (AUTO) 55.7 %; PLT - PLATELET COUNT 294 10^3/uL (130-450); RED BLOOD COUNT 4.33 10^6/uL (4.20-5.40); RED CELL DISTRIBUTION WIDTH 13.2 % (12.0-15.0); WHITE BLOOD COUNT 8.9 x10^3/uL (4.8-10.8)
[2018-01-03 13:37] LABS: ALKALINE PHOSPHATASE 42 IU/L (42-121); ALT ALANINE AMINOTRANSFERASE 21 IU/L (10-60); AST ASPARTATE AMINOTRANSFERASE 25 IU/L (10-42); BILIRUBIN,TOTAL 0.8 mg/dL (0.2-1.0); BUN - BLOOD UREA NITROGEN 16 mg/dL (6-20); CALCIUM 9.6 mg/dL (8.5-10.3); CARBON DIOXIDE - CO2 27 mmol/L (21-32); CHLORIDE 105 mmol/L (101-111); CHOL/HDL RATIO 2.7 (<4.4); CHOLESTEROL 136 mg/dL; CREATININE 0.5 mg/dL (0.4-1.0); GFR - MDRD 118 (>89); GLUCOSE 114 mg/dL (70-100); HDL CHOLESTEROL 50 mg/dL; LDL CHOLESTEROL,CALCULATED 58 mg/dL; LDL/HDL RATIO 1.2 (<4.4); SODIUM 140 mmol/L (135-145); TOTAL PROTEIN 8.2 g/dL (6.7-8.2); VLDL CHOLESTEROL 28 mg/dL
[2018-01-03 14:27] LABS: HB2 TOTAL 15.9 g/dL; HEMOGLOBIN A1C 0.66 g/dL; HEMOGLOBIN A1C % 5.9 % (4.6-6.2)
== END 2018-01-03 08:01 ==
LOC: LAB.N 08:00
PROVIDERS: ATTEND Physician Assistant Medical
DX: Z79.899 Other long term (current) drug therapy (principal); F32.9 Major depressive disorder, single episode, unspecified; E11.9 Type 2 diabetes mellitus without complications; I10 Essential (primary) hypertension; M81.0 Age-related osteoporosis without current pathological fracture; E78.2 Mixed hyperlipidemia
CPT/HCPCS: 36415; 80053; 80061; 82306; 83036; 83721; 84443; 85025

== ENCOUNTER 2018-04-19 08:00 | Outpatient (CLI) | payer MEDICARE, BC ==
[2018-04-19 15:22] LABS: HB2 TOTAL 14.9 g/dL; HEMOGLOBIN A1C 0.67 g/dL; HEMOGLOBIN A1C % 6.3 % (4.6-6.2)
== END 2018-04-19 23:59 | disposition home or self-care (01) ==
LOC: LAB.N 08:00
PROVIDERS: ATTEND Physician Assistant Medical
DX: E11.9 Type 2 diabetes mellitus without complications (principal); Z79.899 Other long term (current) drug therapy
CPT/HCPCS: 36415; 82947; 83036

== ENCOUNTER 2018-06-03 14:23 | Outpatient (CLI) | payer MEDICARE, BC ==
[2018-06-03 15:06] LABS: BASOPHILS # (AUTO) 0.1 10^3/uL (0.0-0.1); BASOPHILS % (AUTO) 1.2 %; EOSINOPHILS # (AUTO) 0.1 10^3/uL (0.0-0.7); EOSINOPHILS % (AUTO) 1.9 %; HGB - HEMOGLOBIN 13.9 g/dL (12.0-16.0); LYMPHOCYTES # (AUTO) 1.3 10^3/uL (1.5-3.5); LYMPHOCYTES % (AUTO) 19.4 %; MEAN CORPUSCULAR HEMOGLOBIN 32.4 pg (27.0-31.0); MEAN CORPUSCULAR HGB CONC 32.3 g/dL (32.0-36.0); MEAN CORPUSCULAR VOLUME 100.3 fL (81.0-99.0); MEAN PLATELET VOLUME 7.7 fL (7.9-10.8); MONOCYTES # (AUTO) 0.5 10^3/uL (0.0-1.0); NEUTROPHILS # (AUTO) 4.7 10^3/uL (1.5-6.6); NEUTROPHILS % (AUTO) 70.5 %; PLT - PLATELET COUNT 258 10^3/uL (130-450); RED BLOOD COUNT 4.31 10^6/uL (4.20-5.40); WHITE BLOOD COUNT 6.7 x10^3/uL (4.8-10.8)
[2018-06-03 15:18] LABS: ALBUMIN 3.8 g/dL (3.2-5.5); ALBUMIN/GLOBULIN RATIO 0.9 (1.0-2.2); BILIRUBIN,TOTAL 0.5 mg/dL (0.2-1.0); CALCIUM 9.1 mg/dL (8.5-10.3); CREATININE 0.6 mg/dL (0.4-1.0); TOTAL PROTEIN 8.2 g/dL (6.7-8.2)
== END 2018-06-03 14:24 | disposition home or self-care (01) ==
LOC: LAB 14:23
PROVIDERS: ATTEND Physician Assistant Medical
DX: R60.0 Localized edema (principal); R06.00 Dyspnea, unspecified
CPT/HCPCS: 36415; 80053; 83880; 84443; 85025

== ENCOUNTER 2018-06-03 16:21 | Outpatient (CLI) | payer MEDICARE, BC ==
--- NOTE | 2018-06-04 15:21 | XRAY Report ---
Reason: DYSPNEA Procedure Date: 06/03/2018 Accession Number: [id number] / [id number] Procedure: XR - Chest 2 View X-Ray CPT Code: 43943 FULL RESULT: EXAM: CHEST RADIOGRAPHY EXAM DATE: 06/03/2018 04:38 PM. CLINICAL HISTORY: DYSPNEA. COMPARISON: 07/05/2017 chest x-ray and CT chest 08/17/2017 TECHNIQUE: 2 views. FINDINGS: Lungs/Pleura: Extensive chronic changes of interstitial fibrosis are similar to previous no superimposed acute infiltrate is seen. No pleural effusion or pneumothorax. Mediastinum: The heart size is enlarged and has increased compared to the prior studies. Other: Scattered degenerative change in the spine with upper lumbar levoscoliosis. IMPRESSION: Cardiomegaly is now present. Changes of chronic interstitial fibrosis not appreciably different than 2018 without superimposed acute processes. [facility]
== END 2018-06-03 16:22 | disposition home or self-care (01) ==
LOC: DI 16:21
PROVIDERS: ATTEND Physician Assistant Medical
DX: R06.00 Dyspnea, unspecified (principal); I51.7 Cardiomegaly; R60.0 Localized edema
CPT/HCPCS: 36415; 71046; 80053; 83880; 84443; 85025

== ENCOUNTER 2018-06-06 15:44 | Outpatient (CLI) | payer MEDICARE, BC | END 2018-06-06 23:59 | disposition home or self-care (01) | LOC: LAB.R 15:44 | PROVIDERS: ATTEND Physician Assistant Medical | DX: N39.0 Urinary tract infection, site not specified (principal) | CPT/HCPCS: 87086; 87181 ==

== ENCOUNTER 2018-06-14 08:00 | Outpatient (CLI) | payer MEDICARE, BC ==
[2018-06-14 18:52] LABS: BASOPHILS # (AUTO) 0.1 10^3/uL (0.0-0.1); BASOPHILS % (AUTO) 1.2 %; EOSINOPHILS # (AUTO) 0.2 10^3/uL (0.0-0.7); EOSINOPHILS % (AUTO) 3.2 %; HGB - HEMOGLOBIN 13.6 g/dL (12.0-16.0); LYMPHOCYTES % (AUTO) 29.6 %; MEAN CORPUSCULAR HEMOGLOBIN 32.6 pg (27.0-31.0); MEAN CORPUSCULAR HGB CONC 33.5 g/dL (32.0-36.0); MEAN CORPUSCULAR VOLUME 97.3 fL (81.0-99.0); MEAN PLATELET VOLUME 8.3 fL (7.9-10.8); MONOCYTES # (AUTO) 0.5 10^3/uL (0.0-1.0); MONOCYTES % (AUTO) 6.7 %; NEUTROPHILS % (AUTO) 59.3 %; PLT - PLATELET COUNT 254 10^3/uL (130-450); RED BLOOD COUNT 4.17 10^6/uL (4.20-5.40); RED CELL DISTRIBUTION WIDTH 13.4 % (12.0-15.0); WHITE BLOOD COUNT 6.8 x10^3/uL (4.8-10.8)
[2018-06-14 19:13] LABS: ALBUMIN 3.6 g/dL (3.2-5.5); ALBUMIN/GLOBULIN RATIO 0.8 (1.0-2.2); BILIRUBIN,TOTAL 0.7 mg/dL (0.2-1.0); CALCIUM 9.2 mg/dL (8.5-10.3); CREATININE 0.5 mg/dL (0.4-1.0)
== END 2018-06-14 23:59 | disposition home or self-care (01) ==
LOC: LAB.WCP 08:00
PROVIDERS: ATTEND Physician Assistant
DX: I50.9 Heart failure, unspecified (principal)
CPT/HCPCS: 36415; 80053; 85025

== ENCOUNTER 2018-07-15 13:40 | Outpatient (CLI) | payer MEDICARE, BC | END 2018-07-15 13:41 | disposition home or self-care (01) | LOC: DI 13:40 | PROVIDERS: ATTEND Physician Assistant | DX: I50.9 Heart failure, unspecified (principal); I07.1 Rheumatic tricuspid insufficiency | CPT/HCPCS: 93306 ==

== ENCOUNTER 2018-11-18 14:15 | Outpatient (CLI) | payer MEDICARE, BC ==
[2018-11-18 18:34] LABS: BASOPHILS # (AUTO) 0.1 10^3/uL (0.0-0.1); BASOPHILS % (AUTO) 0.9 %; EOSINOPHILS # (AUTO) 0.3 10^3/uL (0.0-0.7); EOSINOPHILS % (AUTO) 3.3 %; HGB - HEMOGLOBIN 12.9 g/dL (12.0-16.0); LYMPHOCYTES # (AUTO) 1.5 10^3/uL (1.5-3.5); LYMPHOCYTES % (AUTO) 17.4 %; MEAN CORPUSCULAR HEMOGLOBIN 32.3 pg (27.0-31.0); MEAN CORPUSCULAR HGB CONC 31.5 g/dL (32.0-36.0); MEAN CORPUSCULAR VOLUME 102.5 fL (81.0-99.0); MEAN PLATELET VOLUME 10.5 fL (7.9-10.8); MONOCYTES # (AUTO) 0.6 10^3/uL (0.0-1.0); NEUTROPHILS # (AUTO) 6.3 10^3/uL (1.5-6.6); NEUTROPHILS % (AUTO) 71.2 %; PLT - PLATELET COUNT 245 10^3/uL (130-450); RED CELL DISTRIBUTION WIDTH 11.7 % (12.0-15.0); WHITE BLOOD COUNT 8.8 x10^3/uL (4.8-10.8)
[2018-11-18 19:13] LABS: HB2 TOTAL 14.1 g/dL; HEMOGLOBIN A1C 0.65 g/dL; HEMOGLOBIN A1C % 6.4 % (4.6-6.2)
[2018-11-18 19:16] LABS: ALBUMIN 3.4 g/dL (3.2-5.5); ALBUMIN/GLOBULIN RATIO 0.8 (1.0-2.2); BILIRUBIN,TOTAL 0.6 mg/dL (0.2-1.0); CREATININE 0.5 mg/dL (0.4-1.0); TOTAL PROTEIN 7.6 g/dL (6.7-8.2)
== END 2018-11-18 23:59 | disposition home or self-care (01) ==
LOC: LAB.WCP 14:15
PROVIDERS: ATTEND Physician Assistant
DX: E11.9 Type 2 diabetes mellitus without complications (principal)
CPT/HCPCS: 36415; 80053; 83036; 85025

== ENCOUNTER 2019-01-02 16:55 | Emergency (ER) | payer MEDICARE, BC ==
[2019-01-02 17:24] LABS: BASOPHILS # (AUTO) 0.1 10^3/uL (0.0-0.1); BASOPHILS % (AUTO) 1.1 %; EOSINOPHILS # (AUTO) 0.4 10^3/uL (0.0-0.7); EOSINOPHILS % (AUTO) 4.3 %; LYMPHOCYTES % (AUTO) 23.9 %; MEAN CORPUSCULAR HEMOGLOBIN 33.2 pg (27.0-31.0); MEAN CORPUSCULAR HGB CONC 32.7 g/dL (32.0-36.0); MEAN CORPUSCULAR VOLUME 101.4 fL (81.0-99.0); MEAN PLATELET VOLUME 9.9 fL (7.9-10.8); MONOCYTES # (AUTO) 0.5 10^3/uL (0.0-1.0); MONOCYTES % (AUTO) 5.3 %; NEUTROPHILS # (AUTO) 5.6 10^3/uL (1.5-6.6); PLT - PLATELET COUNT 257 10^3/uL (130-450); RED BLOOD COUNT 4.22 10^6/uL (4.20-5.40); RED CELL DISTRIBUTION WIDTH 12.1 % (12.0-15.0); WHITE BLOOD COUNT 8.6 x10^3/uL (4.8-10.8)
--- NOTE | 2019-01-02 17:27 | ED Physician Documentation ---
History of Present Illness - Stated complaint Stated Complaint: DIZZY,LIGHTHEADEDNESS - Chief complaint Chief Complaint: Resp - History obtained from History obtained from: Patient - History of Present Illness Timing: Yesterday (83-year-old woman on aspirin, not warfarin in contrast to the med list. She has for pulmonary fibrosis with tenuous pulmonary status at baseline. She is followed by Dr. 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 Starting yesterday she had dark tarry stools. Her breathing is a little worse than normal but not much. She denies abdominal pain. She does have a remote history of ulcer bleeding.) Review of Systems Ten Systems: 10 systems reviewed and negative Constitutional: denies: Fever, Chills Cardiac: denies: Palpitations Respiratory: reports: Dyspnea. 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 - Present Medications Home Medications: Ambulatory Orders Medication Instructions Recorded Confirmed RX: Metoprolol Tartrate 25 mg DAILY 07/22/15 12/05/17 RX: Multivitamin [Multivitamins] 1 tab DAILY 07/22/15 12/05/17 RX: Omeprazole [PriLOSEC] 20 mg DAILY 07/22/15 12/05/17 RX: Atorvastatin [Lipitor] 20 mg PO DAILY 07/14/17 12/05/17 metFORMIN [Glucophage] 500 mg PO DAILY 07/14/17 12/05/17 RX: Warfarin [Coumadin] 5 mg PO DAILY 08/22/17 12/05/17 Escitalopram [Lexapro] 1 tab ORAL DAILY 12/05/17 12/05/17 - Allergies Allergies/Adverse Reactions: Allergies Allergy/AdvReac Type Severity Reaction Status Date / Time codeine Allergy Unknown Verified 01/02/19 17:08 Penicillins Allergy Unknown Verified 01/02/19 17:08 sulfamethoxazole Allergy Unknown Verified 01/02/19 17:08 [From ] trimethoprim [From ] Allergy Unknown Verified 01/02/19 17:08 - Social History Does the pt smoke?: No Smoking Status: Former smoker Does the pt drink ETOH?: Yes Does the pt have substance abuse?: No PD ED PE NORMAL - Vitals Vital signs reviewed: Yes - General General: Alert and oriented X 3, Other (She is on her usual 3 L of oxygen) - Neck Neck: Supple, no meningeal sign, No bony TTP - Cardiac Cardiac: RRR, No murmur - Respiratory Respiratory: Other (Crackly throughout) - Abdomen Abdomen: Soft, Non tender - Rectal Rectal: Other (Her stool is certainly dark on rectal exam but it is guaiac negat [place] 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.) - Back Back: No CVA TTP, No spinal TTP - Derm Derm: Normal color, Warm and dry - Extremities Extremities: No edema, No calf tenderness / cord - Neuro Neuro: Alert and oriented X 3, Normal speech Results - Vitals Vitals: Vital Signs - 24 hr 01/02/19 01/02/19 17:00 17:52 Temperature 36.1 C L Heart Rate 84 85 Respiratory 26 H 22 Rate Blood Pressure 125/86 H 110/63 O2 Saturation 89 L 89 L Oxygen O2 Source Nasal cannula - EKG (time done) 1702 Rate: Rate (enter#) (88) Rhythm: NSR (with pvcs), LAE [place]: Normal Intervals: Normal MD Ischemia: Normal ST segments, Other (RVH) Computer interpretation: Agree with computer - Labs Labs: Laboratory Tests 01/02/19 01/02/19 01/02/19 17:15 17:15 17:15 WBC 8.6 RBC 4.22 Hgb 14.0 Hct 42.8 MCV 101.4 H MCH 33.2 H MCHC 32.7 RDW 12.1 Plt Count 257 MPV 9.9 Neut # (Auto) 5.6 Lymph # (Auto) 2.0 [place] # (Auto) 0.5 Eos # (Auto) 0.4 Baso # (Auto) 0.1 Absolute Nucleated RBC 0.00 Nucleated RBC % 0.0 PT 14.3 H INR 1.3 H Sodium 140 Potassium 4.2 Chloride 105 Carbon Dioxide 26 Anion Gap 9.0 BUN 27 H Creatinine 0.6 Estimated GFR (MDRD) 95 Glucose 228 H Calcium 9.6 Total Bilirubin 0.9 AST 35 ALT 37 Alkaline Phosphatase 46 Total Protein 8.8 H Albumin 4.0 Globulin 4.8 H Albumin/Globulin Ratio 0.8 L Lipase 40 PD MEDICAL DECISION MAKING - ED course ED course: This an 83-year-old woman who presents with a chief complaint of dark tarry stools and of course the complaint is concerning for internal bleeding. That said she is guaiac negative with an H&H that is at her baseline. Departure - Departure Disposition: 01 Home, Self Care Clinical Impression: Dark stools Condition: Good Record reviewed to determine appropriate education?: Yes Comments: As discussed, there is no evidence either on examination or on blood work of any bleeding. Return if worse. Discharge Date/Time: 01/02/19 17:58
[2019-01-02 17:37] LABS: ALBUMIN/GLOBULIN RATIO 0.8 (1.0-2.2); BILIRUBIN,TOTAL 0.9 mg/dL (0.2-1.0); CALCIUM 9.6 mg/dL (8.5-10.3); CREATININE 0.6 mg/dL (0.4-1.0); INR 1.3 (0.8-1.2); PT - PROTHROMBIN TIME 14.3 secs (9.9-12.6); TOTAL PROTEIN 8.8 g/dL (6.7-8.2)
[2019-01-02 17:53] VITALS: BP 110/63
== END 2019-01-02 17:58 | disposition home or self-care (01) ==
LOC: ED 16:55
DX: R19.5 Other fecal abnormalities (principal); J84.10 Pulmonary fibrosis, unspecified; I49.3 Ventricular premature depolarization; I10 Essential (primary) hypertension; Z87.11 Personal history of peptic ulcer disease; Z79.82 Long term (current) use of aspirin; Z87.891 Personal history of nicotine dependence
CPT/HCPCS: 36415; 80053; 83690; 85025; 85610; 86850; 86900; 86901; 93005; 99282; 99284

== ENCOUNTER 2019-04-22 13:37 | Outpatient (CLI) | payer MEDICARE, BC | END 2019-04-22 23:59 | disposition critical access hospital (66) | LOC: EMS 13:37 | PROVIDERS: ATTEND Surgery | DX: R53.1 Weakness (principal); R07.81 Pleurodynia; R06.02 Shortness of breath | CPT/HCPCS: A0425; A0429 ==

== ENCOUNTER 2019-04-22 14:00 | Emergency (ER) | payer MEDICARE, BC ==
--- NOTE | 2019-04-22 14:11 | ED Physician Documentation ---
PD HPI CHEST PAIN - Stated complaint Stated Complaint: WEAKNESS - History obtained from History obtained from: Patient - History of Present Illness Timing - onset: Other (84-year-old woman with history of pulmonary fibrosis presents with 2 complaints. For the last 2 weeks she has had intermittent right upper quadrant pain after eating, she also has increased on chronic shortness of breath, no cough. Noted increased oxygen requirements, she is usually on 4 L at home and is needing about 6 L now. There is no associated chest pain, but then she vacillates and says "at least nothing I would call chest pain." When asked her to clarify, she says her chest just hurts sometimes.) Review of Systems Ten Systems: 10 systems reviewed and negative Constitutional: reports: Fatigue. denies: Fever, Chills Cardiac: reports: Pedal edema (slight). denies: Chest pain / pressure, Palpitations Respiratory: reports: Dyspnea. denies: Cough GI: reports: Abdominal Pain. 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 - Present Medications Home Medications: Ambulatory Orders Medication Instructions Recorded Confirmed Metoprolol Tartrate 25 mg DAILY 07/22/15 12/05/17 Multivitamin [Multivitamins] 1 tab DAILY 07/22/15 12/05/17 Omeprazole [PriLOSEC] 20 mg DAILY 07/22/15 12/05/17 Atorvastatin [Lipitor] 20 mg PO DAILY 07/14/17 12/05/17 metFORMIN [Glucophage] 500 mg PO DAILY 07/14/17 12/05/17 Warfarin [Coumadin] 5 mg PO DAILY 08/22/17 12/05/17 Escitalopram [Lexapro] 1 tab ORAL DAILY 12/05/17 12/05/17 Pramipexole [Mirapex] 0.25 mg PO HS #30 tablet 04/22/19 predniSONE [Deltasone] 20 mg PO [id number] #21 tab 04/22/19 ursodioL [[place] 250] 250 mg PO TID #90 tablet 04/22/19 - Allergies Allergies/Adverse Reactions: Allergies Allergy/AdvReac Type Severity Reaction Status Date / Time codeine Allergy Unknown Verified 04/22/19 14:04 Penicillins Allergy Unknown Verified 04/22/19 14:04 Sulfa (Sulfonamide Allergy Rash Verified 04/22/19 14:04 Antibiotics) sulfamethoxazole Allergy Unknown Verified 04/22/19 14:04 [From ] trimethoprim [From ] Allergy Unknown Verified 04/22/19 14:04 - Social History Does the pt smoke?: No Smoking Status: Former smoker Does the pt drink ETOH?: Yes Does the pt have substance abuse?: No - Immunizations Immunizations are current?: Yes PD ED PE NORMAL - Vitals Vital signs reviewed: Yes - General General: Alert and oriented X 3, No acute distress - HEENT HEENT: PERRL, EOMI - Neck Neck: Supple, no meningeal sign, No bony TTP - Cardiac Cardiac: Other (Irregularly irregular with 3 out of 6 systolic murmur heard best at the left upper sternal border but somewhat obscured by loud breath sounds.) - Respiratory Respiratory: Other (Loud fine rhonchi and gurgling sounds throughout, minimally labored) - Abdomen Abdomen: Soft, Non tender - Back Back: No CVA TTP, No spinal TTP - Derm Derm: Normal color, Warm and dry - Extremities Extremities: No edema, No calf tenderness / cord - Neuro Neuro: Alert and oriented X 3, Normal speech Results - Vitals Vitals: Vital Signs - 24 hr 04/22/19 04/22/19 04/22/19 14:04 14:16 16:15 Temperature 36.5 C Heart Rate 78 78 80 Respiratory 16 16 32 H Rate Blood Pressure 145/87 H 145/87 H 138/100 H O2 Saturation 92 91 L 98 04/22/19 17:30 Temperature Heart Rate 89 Respiratory 24 Rate Blood Pressure 158/100 H O2 Saturation 96 Oxygen O2 Source Nasal cannula Oxygen Flow Rate 6 - EKG (time done) 1502 Rate: Rate (enter#) (90) Rhythm: NSR (With frequent PVCs) [place]: Normal QRS: Low voltage Ischemia: Non specific changes, Other (Right ventricular hypertrophy) - Labs Labs: Laboratory Tests 04/22/19 04/22/19 04/22/19 14:05 14:05 14:05 WBC 6.4 RBC 4.12 L Hgb 13.5 Hct 43.3 MCV 105.1 H MCH 32.8 H MCHC 31.2 L RDW 12.7 Plt Count 206 MPV 10.2 Neut # (Auto) 4.5 Lymph # (Auto) 1.2 L [place] # (Auto) 0.5 Eos # (Auto) 0.1 Baso # (Auto) 0.1 Absolute Nucleated RBC 0.00 Nucleated RBC % 0.0 PT 15.4 H INR 1.4 H Bld Gas Analysis Time Sample Site ABG pH ABG pCO2 ABG pO2 ABG HCO3 ABG Total CO2 ABG O2 Saturation ABG Base Excess [place] Test O2 Delivery Device O2 Liters/Min Sodium 140 Potassium 3.9 Chloride 103 Carbon Dioxide 28 Anion Gap 9.0 BUN 27 H Creatinine 0.5 Estimated GFR (MDRD) 117 Glucose 127 H Calcium 8.9 Magnesium 1.7 Total Bilirubin 0.9 AST 33 ALT 29 Alkaline Phosphatase 63 Troponin I High Sens B-Natriuretic Peptide Total Protein 7.8 Albumin 3.4 Globulin 4.4 H Albumin/Globulin Ratio 0.8 L Lipase 50 Urine Color Urine Clarity Urine pH Ur Specific [place] Urine Protein Urine Glucose (UA) Urine Ketones Urine Occult Blood Urine Nitrite Urine Bilirubin Urine Urobilinogen Ur Leukocyte Esterase Urine RBC Urine WBC Ur Squamous Epith Cells Urine Bacteria Ur Microscopic Review Urine Culture Comments 04/22/19 04/22/19 04/22/19 14:05 14:05 15:37 WBC RBC Hgb Hct MCV MCH MCHC RDW Plt Count MPV Neut # (Auto) Lymph # (Auto) [place] # (Auto) Eos # (Auto) Baso # (Auto) Absolute Nucleated RBC Nucleated RBC % PT INR Bld Gas Analysis Time Sample Site ABG pH ABG pCO2 ABG pO2 ABG HCO3 ABG Total CO2 ABG O2 Saturation ABG Base Excess [place] Test O2 Delivery Device O2 Liters/Min Sodium Potassium Chloride Carbon Dioxide Anion Gap BUN Creatinine Estimated GFR (MDRD) Glucose Calcium Magnesium Total Bilirubin AST ALT Alkaline Phosphatase Troponin I High Sens 11.0 B-Natriuretic Peptide 2034 H Total Protein Albumin Globulin Albumin/Globulin Ratio Lipase Urine Color YELLOW Urine Clarity CLOUDY Urine pH 6.0 Ur Specific [place] >=1.030 H Urine Protein >=300 H Urine Glucose (UA) NEGATIVE Urine Ketones NEGATIVE Urine Occult Blood SMALL H Urine Nitrite POSITIVE H Urine Bilirubin NEGATIVE Urine Urobilinogen 1 (NORMAL) Ur Leukocyte Esterase NEGATIVE Urine RBC 6-10 H Urine WBC 6-10 H Ur Squamous Epith Cells FEW Squamous Urine Bacteria Many H Ur Microscopic Review INDICATED Urine Culture Comments INDICATED 04/22/19 16:54 WBC RBC Hgb Hct MCV MCH MCHC RDW Plt Count MPV Neut # (Auto) Lymph # (Auto) [place] # (Auto) Eos # (Auto) Baso # (Auto) Absolute Nucleated RBC Nucleated RBC % PT INR Bld Gas Analysis Time 1654 Sample Site RIGHT RADIAL ABG pH 7.46 H ABG pCO2 38 ABG pO2 63 L ABG HCO3 26.5 H ABG Total CO2 27.7 ABG O2 Saturation 92 L ABG Base Excess 2.8 [place] Test POSITIVE O2 Delivery Device NASAL CANNULA O2 Liters/Min 4.00 Sodium Potassium Chloride Carbon Dioxide Anion Gap BUN Creatinine Estimated GFR (MDRD) Glucose Calcium Magnesium Total Bilirubin AST ALT Alkaline Phosphatase Troponin I High Sens B-Natriuretic Peptide Total Protein Albumin Globulin Albumin/Globulin Ratio Lipase Urine Color Urine Clarity Urine pH Ur Specific [place] Urine Protein Urine Glucose (UA) Urine Ketones Urine Occult Blood Urine Nitrite Urine Bilirubin Urine Urobilinogen Ur Leukocyte Esterase Urine RBC Urine WBC Ur Squamous Epith Cells Urine Bacteria Ur Microscopic Review Urine Culture Comments - Rads (name of study) RUQ sono Radiology: EMP read contemporaneously (8 mm stone in the gallbladder neck without findings of cholecystitis) 2v chest Radiology: EMP read contemporaneously (Cardiomegaly with coarse reticular opacity, some element of superimposed pulmonary edema is not excluded, no evidence of lobar infiltrate or effusion) PD MEDICAL DECISION MAKING - ED course Complexity details: reviewed old records (Last echocardiogram in our system was reviewed dated July 15 of last year. EF of 55 to 60% with grade 1 diastolic dysfunction. Right ventricular volume overload and severe right ventricular enlargement. Mild to moderate tricuspid regurgitation with severely abnormal right heart pressures. The RVSP at rest is 86.) ED course: 84-year-old woman with history of pulmonary fibrosis and With resultant severe right-sided heart failure as well presents with intermittent right upper quadrant pain and is found to have a gallstone in the neck of the gallbladder. Her oxygen requirement is increased over her baseline. She is administered IV Lasix and Nitropaste pending consultation with her tie hacker. Unfortunately I think probably her cardiopulmonary status is such that it would be very difficult to safely optimize her for surgery. Spoke with Dr Lopez occupational therapy technician for her tie hacker. She recommends clarification of CODE STATUS and a blood gas. We can call her back with the results of the blood gas but really this is only medical management. She agrees that she is not a good surgical candidate overall, An ABG was ordered. I discussed CODE STATUS with the patient and she is DNR/DNI. Blood gas was actually surprisingly reassuring, 7.46/30 , that was on her usual 4 L. Spoke with the tie hacker again who agreed with a burst of steroids but probably outpatient expectant management. We will trial some ursodiol as well. As an ancillary complaint she has a chronic complaint of restless legs which she would like something for as well. He was offered inpatient optimization of her cardiac status, but she wanted to go home and given her long-term prognosis, I am willing to do what ever she wis hes. Departure - Departure Disposition: Home, Self Care Clinical Impression: Congestive heart failure, Pulmonary fibrosis, Gall stone Condition: Good Record reviewed to determine appropriate education?: Yes Instructions: Heart Failure Dc, Gallstones Dc Prescriptions: Pramipexole [Mirapex] 0.25 mg PO HS #30 tablet predniSONE [Deltasone] 20 mg PO [id number] #21 tab ursodioL [[place] 250] 250 mg PO TID #90 tablet Comments: Your seen today for abdominal pain and increased work of breathing. You had some CHF on top of your pulmonary fibrosis. He had good urine output here which should help with your breathing, and your blood gas actually looks pretty good. You are found to have a gallstone. Unfortunately because of your underlying heart and lung disease you are not a good surgical candidate. Return anytime if the pain is worse and we will trial the ursodiol to see if it can make the gallstone go away but noting that medication is not very effective. Follow-up with your primary care physician for further evaluation and treatment. Return anytime if worse. Discharge Date/Time: 04/22/19 17:56
[2019-04-22 15:12] LABS: BASOPHILS # (AUTO) 0.1 10^3/uL (0.0-0.1); BASOPHILS % (AUTO) 0.9 %; EOSINOPHILS # (AUTO) 0.1 10^3/uL (0.0-0.7); EOSINOPHILS % (AUTO) 2.2 %; HGB - HEMOGLOBIN 13.5 g/dL (12.0-16.0); LYMPHOCYTES # (AUTO) 1.2 10^3/uL (1.5-3.5); LYMPHOCYTES % (AUTO) 18.5 %; MEAN CORPUSCULAR HEMOGLOBIN 32.8 pg (27.0-31.0); MEAN CORPUSCULAR HGB CONC 31.2 g/dL (32.0-36.0); MEAN CORPUSCULAR VOLUME 105.1 fL (81.0-99.0); MEAN PLATELET VOLUME 10.2 fL (7.9-10.8); MONOCYTES # (AUTO) 0.5 10^3/uL (0.0-1.0); MONOCYTES % (AUTO) 7.5 %; NEUTROPHILS # (AUTO) 4.5 10^3/uL (1.5-6.6); NEUTROPHILS % (AUTO) 70.7 %; PLT - PLATELET COUNT 206 10^3/uL (130-450); RED BLOOD COUNT 4.12 10^6/uL (4.20-5.40); RED CELL DISTRIBUTION WIDTH 12.7 % (12.0-15.0); WHITE BLOOD COUNT 6.4 x10^3/uL (4.8-10.8)
--- NOTE | 2019-04-22 15:13 | Ultrasound Report ---
Reason: Ruq pain Procedure Date: 04/22/2019 Accession Number: [id number] / [id number] Procedure: US - Abdomen Limited CPT Code: Final Report FULL RESULT: EXAM: ABDOMEN ULTRASOUND LIMITED, RUQ EXAM DATE: 04/22/2019 02:49 PM. CLINICAL HISTORY: Ruq pain. COMPARISON: ABDOMEN/PELVIS W/ 08/17/2017 3:30 PM. TECHNIQUE: Real-time scanning was performed with static images obtained. FINDINGS: Liver: Normal in size and echotexture. 14.2 cm. Main portal vein flow: Hepatopetal. Gallbladder: 8 mm non-mobile stone at the gallbladder neck. No abnormal gallbladder dilation, sludge, wall thickening, pericholecystic fluid, or sonographic Villa's sign. Biliary System: CBD measures 6.5 mm. No intrahepatic or extrahepatic ductal dilatation. Other: Right kidney normal in size, 10.2 cm. 1.6 x 1.3 x 1.7 cm upper pole simple cortical cyst. IMPRESSION: 8 mm stone at the gallbladder neck. No sonographic evidence of cholecystitis. RADIA
[2019-04-22 15:18] LABS: INR 1.4 (0.8-1.2); PT - PROTHROMBIN TIME 15.4 secs (9.9-12.6)
[2019-04-22 15:24] LABS: ALBUMIN 3.4 g/dL (3.2-5.5); ALBUMIN/GLOBULIN RATIO 0.8 (1.0-2.2); BILIRUBIN,TOTAL 0.9 mg/dL (0.2-1.0); CALCIUM 8.9 mg/dL (8.5-10.3); CREATININE 0.5 mg/dL (0.4-1.0); MAGNESIUM 1.7 mg/dL (1.7-2.8); TOTAL PROTEIN 7.8 g/dL (6.7-8.2)
[2019-04-22] MEDS ORDERED: FUROSEMIDE 40 MG/4 ML VIAL IVP STA (15:39)
[2019-04-22] MEDS ORDERED: NITROGLYCERIN 2% PASTE TOP STA (15:39)
--- NOTE | 2019-04-22 15:39 | XRAY Report ---
Reason: soa Procedure Date: 04/22/2019 Accession Number: [id number] / [id number] Procedure: XR - Chest 2 View X-Ray CPT Code: 38085 Final Report FULL RESULT: EXAM: CHEST RADIOGRAPHY EXAM DATE: 04/22/2019 03:04 PM. CLINICAL HISTORY: Dyspnea. COMPARISON: CHEST 2 VIEW 06/03/2018 4:30 PM. TECHNIQUE: 2 views. FINDINGS: Lungs/Pleura: There is coarse reticular opacity within the lungs. This is most pronounced within the periphery of the chest. No definite evidence of acute infiltrate or effusion. There is no pneumothorax. Mediastinum: There is cardiomegaly. Other: None. IMPRESSION: 1. There is cardiomegaly. 2. There is coarse reticular opacity within the lungs, most pronounced within the periphery of the chest. 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 3. Some element of superimposed edema is not excluded. There is no evidence of lobar infiltrate or effusion. 4. There is no pneumothorax. RADIA
[2019-04-22 15:48] LABS: BILIRUBIN,URINE NEGATIVE (NEGATIVE); GLUCOSE, URINE (UA) NEGATIVE (NEGATIVE); KETONES,URINE (UA) NEGATIVE (NEGATIVE); LEUKOCYTE ESTERASE, URINE NEGATIVE (NEGATIVE); NITRITE,URINE POSITIVE (NEGATIVE); OCCULT BLOOD,URINE SMALL (NEGATIVE); PROTEIN,URINE >=300 mg/dL (NEGATIVE); UROBILINOGEN,URINE 1 (NORMAL) E.U./dL (NORMAL)
[2019-04-22 15:49] LABS: CLARITY,URINE CLOUDY (CLEAR)
[2019-04-22 15:56] LABS: BACTERIA,URINE Many /HPF (None Seen); SQUAMOUS EPITHELIAL CELL,UR FEW Squamous (<= Few)
[2019-04-22 17:02] LABS: ABG HCO3 26.5 mmol/L (22.0-26.0); ABG PCO2 38 mmHg (34-45); ABG PH 7.46 (7.35-7.45); ABG PO2 63 mmHg (80-100); ABG TCO2 27.7 MMOL/L (21.0-29.0)
[2019-04-22 17:03] LABS: ABG BASE EXCESS 2.8 mmol/L (-2.0-3.0); ABG OXYGEN SATURATION 92 % (94-98); ALLEN TEST POSITIVE
[2019-04-22 17:31] VITALS: BP 158/100
== END 2019-04-22 17:56 | disposition home or self-care (01) ==
LOC: EDUNIT# → ED 14:00
DX: I11.0 Hypertensive heart disease with heart failure (principal); I50.9 Heart failure, unspecified; J84.10 Pulmonary fibrosis, unspecified; K80.20 Calculus of gallbladder without cholecystitis without obstruction; Z87.891 Personal history of nicotine dependence; Z66 Do not resuscitate
CPT/HCPCS: 36415; 36600; 71046; 76705; 80053; 81001; 82803; 83690; 83735; 83880; 84484; 85025; 85610; 87086; 87181; 93005; 99284; 99285; A9270; 81003

== ENCOUNTER 2019-07-11 03:48 | Outpatient (CLI) | payer MEDICARE, BC | END 2019-07-11 03:49 | disposition critical access hospital (66) | LOC: EMS 03:48 | PROVIDERS: ATTEND Surgery | DX: R06.00 Dyspnea, unspecified (principal) | CPT/HCPCS: A0425; A0429 ==

== ENCOUNTER 2019-07-11 04:08 | Inpatient (IN) | payer MEDICARE, BC ==
--- NOTE | 2019-07-11 04:40 | ED Physician Documentation ---
History of Present Illness - Stated complaint Stated Complaint: SOA - Chief complaint Chief Complaint: Resp - Additonal information Additional information: This is an 84-year-old female with a history that includes severe pulmonary fibrosis with resultant right-sided heart failure, who is on 4-5 L of oxygen at home, who presents with increased shortness of breath. History is obtained from patient, EMS, and her daughter Seema (number [phone]). Patient's daughter states that patient has been declining for some time, and at baseline now she is bedbound, incontinent, requires care for her activities of daily living. Any kind of activity, even standing or transferring, will cause her to be severely short of breath. Seema has noticed that pt's extremities have become more cold over the last several days. They have been pursuing palliative care and have received the referral but have not established with palliative care yet. Patient has a POLST form which pt's daughter reviews with me by phone and is a DNR/DNI with limited intervention, no antibiotics, no tube feeds or aggressive interventions. Tonight at 3 AM, patient began yelling out that she could not breathe, and patient's daughter was unable to go up past 5 L of oxygen on her home oxygen machine. EMS was called, and found her to be saturating potentially at 68% on home O2, however the waveform was very poor, and once they transitioned her to a nonrebreather her oxygen was in the 90s. Patient denies any pain. No vomiting or diarrhea. She denies any chest pain specifically. Now that she is on the nonrebreather she states that her breathing feels good, maybe even a little better than usual. She confirms with me that she is a DNR and DNI, but she is okay with interventions to make her more comfortable and to improve her breathing. Patient's daughter does state that patient has had increasing memory issues recently. 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 - Present Medications Home Medications: Ambulatory Orders Medication Instructions Recorded Confirmed Metoprolol Tartrate 25 mg DAILY 07/22/15 12/05/17 Multivitamin [Multivitamins] 1 tab DAILY 07/22/15 12/05/17 Omeprazole [PriLOSEC] 20 mg DAILY 07/22/15 12/05/17 Atorvastatin [Lipitor] 20 mg PO DAILY 07/14/17 12/05/17 metFORMIN [Glucophage] 500 mg PO DAILY 07/14/17 12/05/17 Warfarin [Coumadin] 5 mg PO DAILY 08/22/17 12/05/17 Escitalopram [Lexapro] 1 tab ORAL DAILY 12/05/17 12/05/17 Pramipexole [Mirapex] 0.25 mg PO HS #30 tablet 04/22/19 predniSONE [Deltasone] 20 mg PO [id number] #21 tab 04/22/19 ursodioL [[place] 250] 250 mg PO TID #90 tablet 04/22/19 - Allergies Allergies/Adverse Reactions: Allergies Allergy/AdvReac Type Severity Reaction Status Date / Time codeine Allergy Unknown Verified 07/11/19 04:23 Penicillins Allergy Unknown Verified 07/11/19 04:23 Sulfa (Sulfonamide Allergy Rash Verified 07/11/19 04:23 Antibiotics) sulfamethoxazole Allergy Unknown Verified 07/11/19 04:23 [From ] trimethoprim [From ] Allergy Unknown Verified 07/11/19 04:23 - Social History Does the pt smoke?: No Smoking Status: Never smoker Does the pt drink ETOH?: Yes Does the pt have substance abuse?: No - Immunizations Immunizations are current?: Yes - POLST Patient has POLST: Yes PD ED PE NORMAL - Vitals Vital signs reviewed: Yes - General General: Other (Awake, alert, speaking in short sentences, appears comfortable on the nonrebreather.) - HEENT HEENT: PERRL - Neck Neck: Supple, no meningeal sign - Cardiac Cardiac: RRR - Respiratory Respiratory: Other (Diffuse crackles throughout the lung thomas. Tachypnea. Denies respiratory distress while on non-rebreather at 13L/min.) - Abdomen Abdomen: Normal bowel sounds, Soft, Non tender, Non distended - Derm Derm: Warm and dry - Extremities Extremities: No deformity - Neuro Neuro: Other (Alert, conversant, oriented to event, self, place. No focal deficits.) - Psych Psych: Normal mood, Normal affect Results - Vitals Vitals: Vital Signs - 24 hr 07/11/19 07/11/19 07/11/19 04:23 04:29 05:45 Temperature 35.8 C L Heart Rate 64 62 76 Respiratory 30 H 28 H 24 Rate Blood Pressure 108/76 108/76 110/85 H O2 Saturation 100 100 98 07/11/19 07/11/19 06:33 07:40 Temperature Heart Rate 77 72 Respiratory 20 16 Rate Blood Pressure 117/76 99/65 O2 Saturation 98 100 Oxygen O2 Source Non-rebreather mask Oxygen Flow Rate 10 - EKG (time done) 4:32 Other comments: No: Other comments (Rate 58, rhythm sinus, there is no convincing ST segment elevation or depression, finally detailed evaluation is limited by baseline wander, we attempted to obtain multiple EKGs were unable to eliminate the baseline wander/movement artifact. Right ventricular hypertrophy. Possible prolonged QT interval, though difficult to calculate given the movement artifact) - Labs Labs: Laboratory Tests 07/11/19 07/11/19 07/11/19 05:30 05:30 05:40 WBC 8.4 RBC 4.40 Hgb 14.7 Hct 46.3 MCV 105.2 H MCH 33.4 H MCHC 31.7 L RDW 13.8 Plt Count 235 MPV 10.0 Neut # (Auto) 6.9 H Lymph # (Auto) 0.9 L [place] # (Auto) 0.4 Eos # (Auto) 0.1 Baso # (Auto) 0.1 Absolute Nucleated RBC 0.00 Nucleated RBC % 0.0 Sodium 143 Potassium 4.1 Chloride 104 Carbon Dioxide 29 Anion Gap 10.0 BUN 26 H Creatinine 0.7 Estimated GFR (MDRD) 79 L Glucose 172 H Calcium 9.0 Total Bilirubin 1.0 AST 40 ALT 30 Alkaline Phosphatase 58 Troponin I High Sens 32.3 H* B-Natriuretic Peptide Total Protein 7.5 Albumin 3.2 Globulin 4.3 H Albumin/Globulin Ratio 0.7 L Lipase 44 07/11/19 05:40 WBC RBC Hgb Hct MCV MCH MCHC RDW Plt Count MPV Neut # (Auto) Lymph # (Auto) [place] # (Auto) Eos # (Auto) Baso # (Auto) Absolute Nucleated RBC Nucleated RBC % Sodium Potassium Chloride Carbon Dioxide Anion Gap BUN Creatinine Estimated GFR (MDRD) Glucose Calcium Total Bilirubin AST ALT Alkaline Phosphatase Troponin I High Sens B-Natriuretic Peptide 3694 H Total Protein Albumin Globulin Albumin/Globulin Ratio Lipase - Rads (name of study) CXR Radiology: Other (Pulmonary fibrosis, on my evaluation appears to be suggestion of some mild pulmonary edema as well.) PD MEDICAL DECISION MAKING - ED course Complexity details: considered differential (Pulmonary fibrosis, HF, dysrhythmia, ACS, URI, Covid-19) ED course: Patient is dyspneic on arrival, she reportedly was very hypoxic on her home oximizer for EMS, here on a nonrebreather she is saturating in the high 90% with tachypnea. On the additional oxygen she states that her breathing is feeling better than it was at home. Chest x-ray is obtained and shows advanced pulmonary fibrosis as well as a suggestion of pulmonary edema. Her labs show no leukocytosis, and she does not have any obvious infectious symptoms, no fever. Her high-sensitivity troponin is slightly elevated, she has no chest pain, Her EKG does show some right ventricular hypertrophy without convincing ST segment changes. She does have an elevated BNP at 3700. I highly doubt ACS given she has no chest pain. Overall patient has progressed pulmonary fibrosis as well as what appears to be a mild heart failure exacerbation. She does not have adequate oxygen at home, she is requiring more than 5 L. Though she is in the process of establishing with palliative care, it appears that she will need admission for her hypoxia and increased oxygen requirements, and we may be able to help arrange for hospice or palliative care during the admission as well. On reexamination patient is feeling a bit better, and her oxygenation is stable on the nonrebreather. She agrees with the plan for admission. She was given a dose of Lasix, and admitted for further treatment and evaluation. No fever, no increased cough or history/lab findings suggestive of COVID-19. Proper PPE was used during visit out of precaution. Departure - Departure Disposition: 66 [facility] DC/Xfer Clinical Impression: Pulmonary fibrosis Respiratory failure Qualifiers: Chronicity: acute on chronic Respiratory failure complication: hypoxia Qualified Code(s): J96.21 - Acute and chronic respiratory failure with hypoxia CHF exacerbation Qualifiers: Heart failure type: unspecified Qualified Code(s): I50.9 - Heart failure, unspecified Condition: Stable
--- NOTE | 2019-07-11 05:08 | XRAY Report ---
Reason: Shortness of breath, hx pulm fibrosis, HF Procedure Date: 07/11/2019 Accession Number: [id number] / [id number] Procedure: XR - Chest 1 View X-Ray CPT Code: 73019 Final Report FULL RESULT: EXAM: CHEST RADIOGRAPHY EXAM DATE: 07/11/2019 05:00 AM CLINICAL HISTORY: Shortness of breath and pulmonary fibrosis. COMPARISON: CHEST 2 VIEW 04/22/2019 2:50 PM. TECHNIQUE: 1 view. FINDINGS: Lungs/Pleura: Similar degree and distribution of the reticular and subsegmental opacities throughout both lungs. No pleural effusion. No pneumothorax. Mediastinum: Mild cardiac enlargement. Calcified thoracic aorta. Other: None. IMPRESSION: Similar findings which likely reflects pulmonary fibrosis. This fibrosis makes superimposed mild airspace disease more challenging to detect. RADIA
[2019-07-11 05:46] LABS: BASOPHILS # (AUTO) 0.1 10^3/uL (0.0-0.1); BASOPHILS % (AUTO) 0.7 %; EOSINOPHILS # (AUTO) 0.1 10^3/uL (0.0-0.7); EOSINOPHILS % (AUTO) 0.6 %; HGB - HEMOGLOBIN 14.7 g/dL (12.0-16.0); LYMPHOCYTES # (AUTO) 0.9 10^3/uL (1.5-3.5); LYMPHOCYTES % (AUTO) 10.9 %; MEAN CORPUSCULAR HEMOGLOBIN 33.4 pg (27.0-31.0); MEAN CORPUSCULAR HGB CONC 31.7 g/dL (32.0-36.0); MEAN CORPUSCULAR VOLUME 105.2 fL (81.0-99.0); MONOCYTES # (AUTO) 0.4 10^3/uL (0.0-1.0); MONOCYTES % (AUTO) 4.9 %; NEUTROPHILS # (AUTO) 6.9 10^3/uL (1.5-6.6); NEUTROPHILS % (AUTO) 82.7 %; PLT - PLATELET COUNT 235 10^3/uL (130-450); RED CELL DISTRIBUTION WIDTH 13.8 % (12.0-15.0); WHITE BLOOD COUNT 8.4 x10^3/uL (4.8-10.8)
[2019-07-11 06:00] LABS: ALBUMIN 3.2 g/dL (3.2-5.5); ALBUMIN/GLOBULIN RATIO 0.7 (1.0-2.2); CREATININE 0.7 mg/dL (0.4-1.0); TOTAL PROTEIN 7.5 g/dL (6.7-8.2)
[2019-07-11] MEDS ORDERED: FUROSEMIDE 40 MG/4 ML VIAL IVP STA (07:36)
[2019-07-11] MEDS ORDERED: ONDANSETRON 4 MG/2 ML VIAL IVP PRN (08:06)
[2019-07-11] MEDS ORDERED: ACETAMINOPHEN 325 MG TABLET PO PRN (08:06)
[2019-07-11] MEDS ORDERED: MORPHINE 2 MG/ML CARPUJECT IVP PRN (08:06)
[2019-07-11] MEDS ORDERED: ALBUTEROL NEB 2.5 MG/3 ML INH PRN (08:14)
--- NOTE | 2019-07-11 09:21 | HISTORY & PHYSICAL EXAMINATION ---
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 Pt is alert and she can provide partial History. she report she felt very shortness of breath when she has any exertion or even went to get up the bed. Per ER provider report, patient's daughter report that patient has been declining gradually, she is bedbound, incontinent, pt was requires to have care for her activities of daily living. Pt was found to be sating in the 60's per EMS. Per EMS report pt was placed pt on 8LPM NRB w/O2 sat 98%. Pt arrives in the floor with some distress on speaking full sentences and mild tachypnic. Patient denies any pain, fever, chill, nausea or vomiting or diarrhea. Now that she is on the nonrebreather she states that her breathing feels better than before. Family has been pursuing palliative care and have received the referral from PCP but have not established yet. Patient has a POLST in pt's daughter's hand which was reviewed by ER provider on the phone with a DNR/DNI with limited intervention. 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: reports: Tubal ligation - Family & Social History Family History Comment/Other: pt is demetrio confused, could not provider family medical history Social History Notes: pt is demetrio confused, could not provider social history - POLST Patient has POLST: Yes Meds/Allgy - Home Medications Home Medications: Ambulatory Orders Medication Instructions Recorded Confirmed Metoprolol Tartrate 12.5 mg DAILY 07/22/15 07/11/19 Multivitamin [Multivitamins] 1 tab DAILY 07/22/15 07/11/19 Omeprazole [PriLOSEC] 20 mg PO DAILY 07/22/15 07/11/19 Escitalopram [Lexapro] 10 mg PO DAILY 12/05/17 07/11/19 Pramipexole [Mirapex] 0.25 mg PO HS #30 tablet 04/22/19 07/11/19 Atorvastatin Calcium 20 mg PO QPM 07/11/19 07/11/19 Spironolactone [Aldactone] 12.5 mg PO DAILY 07/11/19 07/11/19 ursodioL [[place] 250] 250 mg PO TIDWM 07/11/19 07/11/19 - Allergies Allergies/Adverse Reactions: Allergies Allergy/AdvReac Type Severity Reaction Status Date / Time codeine Allergy Unknown Verified 07/11/19 04:23 Penicillins Allergy Unknown Verified 07/11/19 04:23 Sulfa (Sulfonamide Allergy Rash Verified 07/11/19 04:23 Antibiotics) sulfamethoxazole Allergy Unknown Verified 07/11/19 04:23 [From ] trimethoprim [From ] Allergy Unknown Verified 07/11/19 04:23 Review of Systems - Constitutional Constitutional: denies: Fever, Chills - Eyes Eyes: denies: Pain, Field loss, Vision loss - Ears, Nose & Throat Ears, Nose & Throat: denies: Ear pain, Nosebleeds - Cardiovascular Cariovascular: reports: Exertional dyspnea, Decr. exercise tolerance. denies: Irregular heart rate, Chest pain, Lightheadedness, Syncope - Respiratory Respiratory: reports: SOB with exertion. denies: Cough, Sputum production, Wheezing, Snoring, Hemoptysis, SOB at rest - Gastrointestinal Gastrointestinal: denies: Abdominal pain, Black stools, Bloody stools, Nausea, Vomiting - Genitourinary Genitourinary: denies: Dysuria - Musculoskeletal Musculoskeletal: denies: Muscle pain, Back pain, Muscle aches - Integumentary Integumentary: denies: Rash - Neurological Neurological: reports: General weakness. denies: Focal weakness, Headache, Pre- existing deficit, Seizures, Incoordination, Slurred speech - Psychiatric Psychiatric: denies: Suicidal, Delusions, Hallucinations, Homicidal - Endocrine Endocrine: denies: Polyuria - Hematologic/Lymphatic Hematologic/Lymphatic: denies: Anemia Exam - Vital Signs Vital Signs: Vital Signs x48h Temp Pulse Resp BP Pulse Ox 07/11/19 08:27 65 18 110/76 99 07/11/19 07:40 72 16 99/65 100 07/11/19 06:33 77 20 117/76 98 07/11/19 05:45 76 24 110/85 H 98 07/11/19 04:29 62 28 H 108/76 100 07/11/19 04:23 35.8 C L 64 30 H 108/76 100 - Physical Exam General Appearance: positive: No acute distress, Alert. negative: Lethargic Eyes Bilateral: positive: Normal inspection, PERRL, No lid inflammation ENT: positive: ENT inspection nml, Pharynx nml, No signs of dehydration. negative: Purulent nasal drainage Neck: positive: Nml inspection, Thyroid nml, No JVD, Trachea midline. negative: Thyromegaly, Lymphadenopathy (R), Lymphadenopathy (L), Stiff neck, Tracheal deviation Respiratory: positive: Chest non-tender, Rales. negative: No respiratory distress, Breath sounds nml, Wheezes, Rhonchi Cardiovascular: positive: Regular rate & rhythm, No murmur, No gallop. negative: Irregularly irregular, Extrasystoles, Tachycardia, Bradycardia, JVD present, Systolic murmur, Diastolic murmur Peripheral Pulses: positive: 2+ Abdomen: positive: Non-tender, No organomegaly, Nml bowel sounds, No distention. negative: Tenderness, Guarding, Rebound Back: positive: Nml inspection. negative: CVA tenderness (R), CVA tenderness (L) Skin: positive: Color nml, No rash, Warm, Dry. negative: Cyanosis, Diaphoresis, Pallor Extremities: positive: Non-tender, Nml appearance. negative: Calf tenderness, Aleja's sign/cords Neurologic/Psychiatric: positive: Sensation nml. negative: Weakness, Sensory loss, Facial droop, Slurred/abnml speech Conclusion/Plan - Problem List (1) Respiratory failure with hypoxia Conclusion/Plan: pt present severe SOB in minus exertion and request 13 liter of O2 initially in ER. pt usually took 5 liter of O2 at home. pt has hx of severe pulmonary fibrosis. because pt has lymphocytopenia, present severe SOB, we will test Covid 19 and isolation precaution. family request palliative/hospice care, we will consult. supplement of O2 as need. provide pulmicort, breath treatment, and lower dosage of steroid. (2) Pulmonary fibrosis Conclusion/Plan: pt has hx of severe pulmonary fibrosis, present severe SOB in minus exertion, family seek palliative/hospice care, we will consult continue supplement of O2 as needed, provide pulmicort, breath treatment, and lower dosage of steroid. (3) CHF exacerbation Conclusion/Plan: pt has hx of right heart failure due to severe pulmonary fibrosis. Her BNP is over 3400 today. family seek palliative/hospice care now, so ECHO is hold now. ER start Lasix, will continue Lasix now. lab and vital monitor Qualifiers: Heart failure type: unspecified Qualified Code(s): I50.9 - Heart failure, unspecified (4) Elevated troponin Conclusion/Plan: twice troponin test is stable, slight elevated. EKG reveals SR. pt denies chest pain or cardiac distress. (5) HTN (hypertension) Conclusion/Plan: stable, will resume home meds Metoprolol. vital monitor (6) HLD (hyperlipidemia) Conclusion/Plan: stable, will reconcile home meds (7) Depression Conclusion/Plan: stable, will resume home Lexapro - Lab Results Fish Bones: 07/11/19 05:40 07/11/19 05:30 Core Measures - Anticipated LOS I expect patient to be DC'd or transferred within 96 hours.: Yes - Stroke - Rehab Assessment Rehab services assessment to be ordered?: Yes - AMI - Statin at Admit Aspirin Prescribed on Admit: Yes
[2019-07-11 09:39] LABS: INR 1.3 (0.8-1.2); PT - PROTHROMBIN TIME 14.9 secs (9.9-12.6)
[2019-07-11 09:52] LABS: HB2 TOTAL 15.5 g/dL; HEMOGLOBIN A1C 0.69 g/dL; HEMOGLOBIN A1C % 6.2 % (4.6-6.2)
--- NOTE | 2019-07-11 10:26 | PHARMACY PROGRESS NOTE ---
- Best Possible Medication History Admit Date and Time: 07/11/19 0806 Processed by: Pharmacy Medication History completed: Yes Secondary Source(s): Physician records, Pharmacy records, Insurance records As the person ultimately responsible for medication therapy, providers are able to order a medication from an existing home medication list in [facility] via the "Reconcile Routine" prior to Confirmation of that medication by information support project manager. Such practice is discouraged except when the physician, in their clinical judgment, deems that a medical need exists for a medication without regard to previous use.
[2019-07-11] MEDS: ENOXAPARIN 30 MG/0.3 ML SYRINGE SUBQ SCH (10:46)
[2019-07-11] MEDS: FAMOTIDINE 20 MG TABLET PO SCH ×2 (10:48→22:12)
[2019-07-11] MEDS: SODIUM CHLORIDE FLUSH 0.9% 10 ML SYRINGE IVP SCH ×2 (11:58→18:08)
[2019-07-11] MEDS: INSULIN ASPART 300 UNIT/3 ML PEN SUBQ SCH ×2 (12:47→12:53)
[2019-07-11] MEDS: FUROSEMIDE 20 MG/2 ML VIAL IVP SCH (13:19)
[2019-07-11] MEDS: methylPREDNISolone SUCCINATE 40 MG/ML VIAL IVP SCH ×2 (13:19→22:11)
[2019-07-11] MEDS: SODIUM CHLORIDE FLUSH 0.9% 10 ML SYRINGE IVP PRN (13:19)
[2019-07-11] MEDS ORDERED: FUROSEMIDE 40 MG/4 ML VIAL IVP SCH (14:00)
--- NOTE | 2019-07-11 18:10 | CONSULTATION NOTE ---
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 She did have improvement of her right quadrant pain, but has still continued decline over time, with functional decline, increased short-term memory issues, less intake, and weight loss. Her pulmonary fibrosis was attributed to methotrexate use, for which she was on for psoriasis. She also has known hyperlipidemia and CHF. She has essentially presented as a failure to thrive, has does live with her daughter, she moved in in December. She had actually been independent prior to this. She has been mostly bedbound, does have severe dyspnea, and now presents acutely to [facility] as a result of worsening respiratory failure, hypoxia, and on chest x-ray suggested of pulmonary edema. She was given some diuretics with improvement, but both her and her daughter are in agreement for a comfort focused approach, and does present is appropriate for transition to hospice. 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 Her daughter has had mild respiratory symptoms, fatigue, but attributes to her smoking hx, asthma, and allergies. I was unable to meet with the daughter secondary to visit her restrictions, did meet with patient, who was able to engage, we did discuss the awkwardness of having a complicated conversation with the PPE, but we did manage to make it through. Patient did confirm her wishes were for to return home, she is relieved to have hospice support for her daughter as she is worried about her, and confirms she wants to focus on comfort.. Medical/Surgical History - Past Medical History Cardiovascular: reports: Hypertension, High cholesterol, Deep vein thrombosis Respiratory: reports: Shortness of breath, Other (PULM FIBROSIS) Neuro: None Endocrine/Autoimmune: reports: Type 2 diabetes GI: reports: None : reports: None Psych: reports: Depression, Anxiety Derm: reports: Psoriasis MRSA Hx?: No Other Past Medical History: Pulmonary Fibrosis and R sided heart failure - Past Surgical History /SHANK BONER: reports: Tubal ligation - Substance History Use: Uses substance without health or social issues: NONE Social History - Living Situation Living arrangement: At home Living Situation: With family Support System: Patient was previously independent prior to moving in with her daughter in December. She had been not doing well, it took her about 2 to 3 years to convince her, she does report she does have some memory issues and does need so me oversight. 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 She moved here with her and 1986, and he in 1994. Family History - Family History Family History: Mother: , Father: , Other family: Alive and Well (son in [place]/ Daughter with health issues) Medications/Allergies - Medications Active Medication List: Active Medications Acetaminophen (Tylenol) 650 mg PO Q4HR PRN PRN Reason: Pain 1 to 4 Albuterol () 2.5 mg INH RTQ4H PRN PRN Reason: Wheezing Budesonide (Pulmicort) 0.5 mg INH RTBID [facility] Enoxaparin Sodium (Lovenox) 30 mg SUBQ DAILY [facility] Last Admin: 07/11/19 10:46 Dose: 30 mg Escitalopram Oxalate (Lexapro) 10 mg PO DAILY [facility] Famotidine (Pepcid) 20 mg PO BID [facility] Last Admin: 07/11/19 10:48 Dose: 20 mg Furosemide (Lasix Inj 20mg Vial) 20 mg IVP BIDDIURETIC [facility] Last Admin: 07/11/19 13:19 Dose: 20 mg Methylprednisolone (Solu-Medrol (40mg Vial)) 30 mg IVP TID [facility] Last Admin: 07/11/19 13:19 Dose: 30 mg Metoprolol Succinate (Toprol Xl) 12.5 mg PO DAILY [facility] Morphine Sulfate (Morphine (Carpuject)) 2 mg IVP Q2HR PRN PRN Reason: Pain 8 to 10 Ondansetron HCl (Zofran Inj) 4 mg IVP Q6HR PRN PRN Reason: Nausea / Vomiting Sodium Chloride (Normal Saline Flush 0.9%) 10 ml IVP PRN PRN PRN Reason: NEEDED PER PROVIDER ORDERS Last Admin: 07/11/19 13:19 Dose: 10 ml Sodium Chloride (Normal Saline Flush 0.9%) 10 ml IVP 0100,0900,1700 MARIO Last Admin: 07/11/19 11:58 Dose: 10 ml Metoprolol Tartrate 12.5 mg DAILY 07/22/15 Multivitamin [Multivitamins] 1 tab DAILY 07/22/15 Omeprazole [PriLOSEC] 20 mg PO DAILY 07/22/15 Escitalopram [Lexapro] 10 mg PO DAILY 12/05/17 Atorvastatin Calcium 20 mg PO QPM 07/11/19 Spironolactone [Aldactone] 12.5 mg PO DAILY 07/11/19 ursodioL [[place] 250] 250 mg PO TIDWM 07/11/19 - Allergies Allergies/Adverse Reactions: Allergies Allergy/AdvReac Type Severity Reaction Status Date / Time codeine Allergy Unknown Verified 07/11/19 04:23 Penicillins Allergy Unknown Verified 07/11/19 04:23 Sulfa (Sulfonamide Allergy Rash Verified 07/11/19 04:23 Antibiotics) sulfamethoxazole Allergy Unknown Verified 07/11/19 04:23 [From Decra] trimethoprim [From Decra] Allergy Unknown Verified 07/11/19 04:23 Review of Systems - Constitutional Constitutional: reports: Fatigue, Other (cachexia) - Eyes Eyes: reports: Vision loss - Ears, Nose & Throat Ears, Nose & Throat: reports: Dry mouth - Cardiovascular Cardiovascular: reports: Decr. exercise tolerance - Respiratory Respiratory: reports: SOB at rest, SOB with exertion. denies: Cough, Sputum p roduction - Gastrointestinal Gastrointestinal: reports: Poor appetite - Genitourinary Genitourinary: reports: Incontinence, Other (has WICK) - Musculoskeletal Musculoskeletal: reports: Stiffness, Muscle weakness, Other (mostly bedbound last few weeks) - Integumentary Integumentary: reports: Dryness - Neurological Neurological: reports: General weakness, Memory problems (STM) - Psychiatric Psychiatric: denies: Depression, Anxiety - All Other Systems All Other Systems: reports: Other (limited ROS) Physical Exam - Vital Signs Vital Signs: Vital Signs x48h Temp Pulse Resp BP Pulse Ox 07/11/19 16:00 36.4 C L 69 18 91/62 99 07/11/19 10:15 36.4 C L 68 22 114/67 98 - Physical Exam General Appearance: positive: Lethargic. negative: Anxious ENT: positive: Dry mucous membranes Neck: positive: No JVD, Trachea midline Cardiovascular: positive: Regular rate & rhythm Respiratory: positive: Diminished throughout, Rales (crackles) Skin: positive: Pallor Extremities: positive: No pedal edema Neurologic/Psychiatric: positive: Disoriented to time, Weakness, Flat affect Palliative Care - POLST Patient has POLST: Yes POLST Status: DNR Pain: No pain Tiredness/Fatigue: Severe (7-10) Drowsiness/Sedation: Moderate (4-6) Nausea: None Anorexia: Moderate (4-6) Dyspnea: Severe (7-10) Depression: Moderate (4-6) Anxiety: Mild (1-3) Feelings of wellbeing/Perceived Quality of Life: Fair, Worsening Sleep: Variable sleep pattern Performance Status: Patient has had significant decline in functional status over the last few days to weeks. She is essentially bedbound. She does appear quite weak and needing assistance with bed mobility. She easily drifts off in the conversation, and does appear quite fatigued. - Palliative Care Discussion: We did discuss in the context of what patient's understanding of her current illness, she does understand she came in with respiratory symptoms, she has long-term had pulmonary fibrosis, but was feeling quite frightened. She also understands she has on precautions as we are testing for the virus. She denies any fever, but we did discuss what her concerns were. She is worried about her daughter, having her at home particularly for end-of-life, so introduced the role and support the hospice team could provide. She felt like this felt somewhat of a relief to her, but she does admit to fears regarding dying. When asked about patient's history with spirituality or hoahaoism, she is somewhat noncommittal, reports she does not "rule it out". We did discuss in the context of transitioning home, the goal would be to keep her comfortable, support her and her family, and addressing any of her fears around breathlessness and not being able to breathe. We would do this in making higher oxygen available, as well as using medications to make her more comfortable. She did seem more at ease after our conversation regarding this transition. I did follow-up with daughter Seema, her goals for her mother are just to keep her comfortable. She was quite distressed at having her mother in such distress. She has been quite realistic, wondering if her mom should have just gone straight to hospice versus through palliative care. Unfortunately have had a backlog, and have not met in the community. Counseling provided regarding the continuum of care, what hospice can and cannot provide. If she were to test positive, she feels like she can keep a contained environment, she has been very careful and monitoring and decreasing traffic in and out. Contact with hospice, patient will need a hospital bed, ability to have oxygen up to 10 L, over the bed table, they do have a commode if needed though patient most likely will be bedbound. Patient will need BLS transfer and Hodge catheter placed prior to leaving as well as comfort meds in the home ordered for pickup prior to transition. Results - Lab Results Lab results reviewed: Yes Fish Bones: 07/11/19 05:40 07/11/19 05:30 Lab and Imaging Results: Lab Results x24hrs 07/11/19 07/11/19 07/11/19 Range/Units 12:06 05:40 05:40 WBC (4.8-10.8) x10^3/uL RBC (4.20-5.40) 10^6/uL Hgb (12.0-16.0) g/dL Hct (37.0-47.0) % MCV (81.0-99.0) fL MCH (27.0-31.0) pg MCHC (32.0-36.0) g/dL RDW (12.0-15.0) % Plt Count (130-450) 10^3/uL MPV (7.9-10.8) fL Neut # (Auto) (1.5-6.6) 10^3/uL Lymph # (Auto) (1.5-3.5) 10^3/uL Whiteside # (Auto) (0.0-1.0) 10^3/uL Eos # (Auto) (0.0-0.7) 10^3/uL Baso # (Auto) (0.0-0.1) 10^3/uL Absolute Nucleated RBC x10^3/uL Nucleated RBC % /100WBC PT 14.9 H (9.9-12.6) secs INR 1.3 H (0.8-1.2) Sodium (135-145) mmol/L Potassium (3.5-5.0) mmol/L Chloride (101-111) mmol/L Carbon Dioxide (21-32) mmol/L Anion Gap (6-13) BUN (6-20) mg/dL Creatinine (0.4-1.0) mg/dL Estimated GFR (MDRD) (>89) Glucose (70-100) mg/dL Glycated Hemoglobin 6.2 (4.6-6.2) % Estim Average Glucose 131 H (70-100) Calcium (8.5-10.3) mg/dL Total Bilirubin (0.2-1.0) mg/dL AST (10-42) IU/L ALT (10-60) IU/L Alkaline Phosphatase (42-121) IU/L Troponin I High Sens 31.5 H* (2.3-14.8) ng/L B-Natriuretic Peptide (5-100) pg/mL Total Protein (6.7-8.2) g/dL Albumin (3.2-5.5) g/dL Globulin (2.1-4.2) g/dL Albumin/Globulin Ratio (1.0-2.2) Lipase (22-51) U/L 07/11/19 07/11/19 07/11/19 Range/Units 05:40 05:40 05:30 WBC 8.4 (4.8-10.8) x10^3/uL RBC 4.40 (4.20-5.40) 10^6/uL Hgb 14.7 (12.0-16.0) g/dL Hct 46.3 (37.0-47.0) % MCV 105.2 H (81.0-99.0) fL MCH 33.4 H (27.0-31.0) pg MCHC 31.7 L (32.0-36.0) g/dL RDW 13.8 (12.0-15.0) % Plt Count 235 (130-450) 10^3/uL MPV 10.0 (7.9-10.8) fL Neut # (Auto) 6.9 H (1.5-6.6) 10^3/uL Lymph # (Auto) 0.9 L (1.5-3.5) 10^3/uL Whiteside # (Auto) 0.4 (0.0-1.0) 10^3/uL Eos # (Auto) 0.1 (0.0-0.7) 10^3/uL Baso # (Auto) 0.1 (0.0-0.1) 10^3/uL Absolute Nucleated RBC 0.00 x10^3/uL Nucleated RBC % 0.0 /100WBC PT (9.9-12.6) secs INR (0.8-1.2) Sodium (135-145) mmol/L Potassium (3.5-5.0) mmol/L Chloride (101-111) mmol/L Carbon Dioxide (21-32) mmol/L Anion Gap (6-13) BUN (6-20) mg/dL Creatinine (0.4-1.0) mg/dL Estimated GFR (MDRD) (>89) Glucose (70-100) mg/dL Glycated Hemoglobin (4.6-6.2) % Estim Average Glucose (70-100) Calcium (8.5-10.3) mg/dL Total Bilirubin (0.2-1.0) mg/dL AST (10-42) IU/L ALT (10-60) IU/L Alkaline Phosphatase (42-121) IU/L Troponin I High Sens 32.3 H* (2.3-14.8) ng/L B-Natriuretic Peptide 3694 H (5-100) pg/mL Total Protein (6.7-8.2) g/dL Albumin (3.2-5.5) g/dL Globulin (2.1-4.2) g/dL Albumin/Globulin Ratio (1.0-2.2) Lipase (22-51) U/L 07/11/19 Range/Units 05:30 WBC (4.8-10.8) x10^3/uL RBC (4.20-5.40) 10^6/uL Hgb (12.0-16.0) g/dL Hct (37.0-47.0) % MCV (81.0-99.0) fL MCH (27.0-31.0) pg MCHC (32.0-36.0) g/dL RDW (12.0-15.0) % Plt Count (130-450) 10^3/uL MPV (7.9-10.8) fL Neut # (Auto) (1.5-6.6) 10^3/uL Lymph # (Auto) (1.5-3.5) 10^3/uL Whiteside # (Auto) (0.0-1.0) 10^3/uL Eos # (Auto) (0.0-0.7) 10^3/uL Baso # (Auto) (0.0-0.1) 10^3/uL Absolute Nucleated RBC x10^3/uL Nucleated RBC % /100WBC PT (9.9-12.6) secs INR (0.8-1.2) Sodium 143 (135-145) mmol/L Potassium 4.1 (3.5-5.0) mmol/L Chloride 104 (101-111) mmol/L Carbon Dioxide 29 (21-32) mmol/L Anion Gap 10.0 (6-13) BUN 26 H (6-20) mg/dL Creatinine 0.7 (0.4-1.0) mg/dL Estimated GFR (MDRD) 79 L (>89) Glucose 172 H (70-100) mg/dL Glycated Hemoglobin (4.6-6.2) % Estim Average Glucose (70-100) Calcium 9.0 (8.5-10.3) mg/dL Total Bilirubin 1.0 (0.2-1.0) mg/dL AST 40 (10-42) IU/L ALT 30 (10-60) IU/L Alkaline Phosphatase 58 (42-121) IU/L Troponin I High Sens (2.3-14.8) ng/L B-Natriuretic Peptide (5-100) pg/mL Total Protein 7.5 (6.7-8.2) g/dL Albumin 3.2 (3.2-5.5) g/dL Globulin 4.3 H (2.1-4.2) g/dL Albumin/Globulin Ratio 0.7 L (1.0-2.2) Lipase 44 (22-51) U/L Impression and Recommendations - Palliative Care Impression: This is a poncho 84-year-old frail woman, who has entered acutely with respiratory failure with hypoxia, most likely attributed to her pulmonary fibrosis and heart failure. Patient has had progressive functional decline, with worsening respiratory status, had been pending palliative care referral. Patient presents with cachexia, dyspnea, fatigue, and mild depression. Patient to transition home on hospice. Daughter's goal is for patient to be comfortable, is aware patient may continue to transition quickly given her frailty. Recommendations/Counseling Done: 1. Dyspnea. This is multifactorial, patient is doing better after diuresis, as well as higher oxygen flow though this is decreasing need. Would recommend ordering morphine sulfate 20 mg per mill; 5 mg every 3 hours for signs or symptoms of respiratory distress. Daughter's goal is for patient be comfortable, patient is anxious about recurrent severe dyspnea such as brought her to the hospital. 2. Depression. Patient has had ongoing decline, he does recognize she is entering to an end-of-life event. Counseling provided regarding the role of h ospice, goal for comfort, and to transition home. Counseling provided normalize grief and loss process as well as validate fears and emotions around these decisions. Would recommend allowing daughter as we are transition to end-of-life visiting privileges as patient is to transition to hospice. 3. Advanced care planning. Met with patient to clarify goals, address concerns regarding support for daughter. Counseling provided to both patient and daughter regarding role of hospice both benefits and limitations. Will order equipment for tomorrow's delivery, coordinated with hospice team, will need MS W support for BLS order and transport. Hospice is planning to admit for Sunday. Will coordinate with on-call hospice staff over the weekend and discharge planning team. Patient will need Hodge catheter placed prior to discharge Patient will need comfort medications in the home prior to BLS transfer, including morphine, lorazepam, and Haldol given it will be a discharge over the weekend. Time Spent: 60 minutes greater than 50% of this done in counseling regarding goals of care, coordination of care with hospitalist and hospice team.
[2019-07-11] MEDS: BUDESONIDE 0.5 MG/2 ML NEB INH SCH (20:42)
[2019-07-12] MEDS: SODIUM CHLORIDE FLUSH 0.9% 10 ML SYRINGE IVP SCH ×3 (01:15→16:50)
[2019-07-12 05:34] LABS: BASOPHILS % (AUTO) 0.2 %; EOSINOPHILS % (AUTO) 0.6 %; HGB - HEMOGLOBIN 13.1 g/dL (12.0-16.0); LYMPHOCYTES # (AUTO) 0.6 10^3/uL (1.5-3.5); LYMPHOCYTES % (AUTO) 10.7 %; MEAN CORPUSCULAR HEMOGLOBIN 31.7 pg (27.0-31.0); MEAN CORPUSCULAR HGB CONC 31.1 g/dL (32.0-36.0); MEAN CORPUSCULAR VOLUME 101.9 fL (81.0-99.0); MEAN PLATELET VOLUME 10.2 fL (7.9-10.8); MONOCYTES # (AUTO) 0.1 10^3/uL (0.0-1.0); MONOCYTES % (AUTO) 1.6 %; NEUTROPHILS # (AUTO) 4.4 10^3/uL (1.5-6.6); NEUTROPHILS % (AUTO) 86.5 %; PLT - PLATELET COUNT 219 10^3/uL (130-450); RED BLOOD COUNT 4.13 10^6/uL (4.20-5.40); RED CELL DISTRIBUTION WIDTH 13.4 % (12.0-15.0); WHITE BLOOD COUNT 5.1 x10^3/uL (4.8-10.8)
[2019-07-12 05:39] LABS: INR 1.3 (0.8-1.2); PT - PROTHROMBIN TIME 14.9 secs (9.9-12.6)
[2019-07-12 05:42] LABS: CALCIUM 8.3 mg/dL (8.5-10.3); CREATININE 0.5 mg/dL (0.4-1.0)
[2019-07-12] MEDS: methylPREDNISolone SUCCINATE 40 MG/ML VIAL IVP SCH ×3 (06:22→21:00)
[2019-07-12] MEDS: SODIUM CHLORIDE FLUSH 0.9% 10 ML SYRINGE IVP PRN ×3 (06:31→20:57)
[2019-07-12] MEDS: FUROSEMIDE 20 MG/2 ML VIAL IVP SCH ×2 (06:31→14:00)
[2019-07-12] MEDS ORDERED: METOPROLOL SUCCINATE 25 MG TABLET PO SCH (09:00)
[2019-07-12] MEDS: BUDESONIDE 0.5 MG/2 ML NEB INH SCH ×2 (09:10→21:21)
[2019-07-12] MEDS: ENOXAPARIN 30 MG/0.3 ML SYRINGE SUBQ SCH (10:46)
[2019-07-12] MEDS: ESCITALOPRAM 10 MG TABLET PO SCH (10:46)
[2019-07-12] MEDS: METOPROLOL SUCCINATE 25 MG TABLET PO SCH (10:46)
[2019-07-12] MEDS: FAMOTIDINE 20 MG TABLET PO SCH ×2 (10:46→20:53)
--- NOTE | 2019-07-12 18:52 | PROVIDER PROGRESS NOTE ---
Assessment/Plan - Problem List (1) Respiratory failure with hypoxia Qualifiers: Chronicity: acute on chronic Qualified Code(s): J96.21 - Acute and chronic respiratory failure with hypoxia Assessment/Plan: The palliative care HOLLOW CORE DOOR FRAME ASSEMBLER was able to ascertain that the patient was not taking her meds, this was probably the reason for her symptoms and hypoxia. Continue supportive care and discharge to Hospice tomorrow is planned (2) Pulmonary fibrosis Assessment/Plan: As per Hx (3) Cor pulmonale Assessment/Plan: No Echo was done this admission since it would not change control coordinator. She had not been taking her meds therefore she had this exacerbation (4) HTN (hypertension) Assessment/Plan: Continue meds and plan (5) Depression Assessment/Plan: Continue meds and plan - Current Meds Current Meds: Current Medications Generic Name Dose Route Start Last Admin Trade Name Freq PRN Reason Stop Dose Admin Albuterol 2.5 mg 07/11/19 08:14 07/11/19 20:42 INH 2.5 mg RTQ4H PRN Administration Wheezing Budesonide 0.5 mg 07/11/19 19:00 07/12/19 09:10 Pulmicort INH Not Given RTBID MARIO Enoxaparin Sodium 30 mg 07/11/19 09:00 07/12/19 10:46 Lovenox SUBQ 30 mg DAILY MARIO Administration Escitalopram Oxalate 10 mg 07/12/19 09:00 07/12/19 10:46 Lexapro PO 10 mg DAILY MARIO Administration Famotidine 20 mg 07/11/19 09:00 07/12/19 10:46 Pepcid PO 20 mg BID MARIO Administration Furosemide 20 mg 07/11/19 14:00 07/12/19 14:00 Lasix Inj 20mg Vial IVP 20 mg BIDDIURETIC MARIO Administration Methylprednisolone 30 mg 07/11/19 14:00 07/12/19 14:00 Solu-Medrol (40mg Vial) IVP 30 mg TID MARIO Administration Metoprolol Succinate 12.5 mg 07/12/19 09:00 07/12/19 10:46 Toprol Xl PO 12.5 mg DAILY MARIO Administration Sodium Chloride 10 ml 07/11/19 08:06 07/12/19 06:36 Normal Saline Flush 0.9% IVP 10 ml PRN PRN Administration NEEDED PER PROVIDER ORDERS Sodium Chloride 10 ml 07/11/19 09:00 07/12/19 16:50 Normal Saline Flush 0.9% IVP 10 ml 0100,0900,1700 [facility] Administration - Lab Result Fish Bone Diagrams: 07/12/19 05:00 07/12/19 05:00 Subjective - Subjective Patient Reports: Resting Comfortably, No Complaints Nursing Reports: Other (desaturating and O2 by oximizer turned up to 40% by RN) Objective Vital Signs: Vital Signs - 24 hr 07/11/19 07/12/19 07/12/19 20:40 01:09 06:36 Temperature 36.6 C Heart Rate 79 Heart Rate [ 66 74 Brachial] Respiratory 18 19 Rate Blood Pressure 101/55 L 111/68 [Left Brachial artery] O2 Saturation 99 07/12/19 07/12/19 07/12/19 08:00 16:00 16:32 Temperature 36.2 C L 36.3 C L Heart Rate Heart Rate [ 76 75 Brachial] Respiratory 14 19 24 Rate Blood Pressure 117/87 H 120/70 [Left Brachial artery] O2 Saturation 97 88 L 93 Oxygen O2 Source Oxymizer Oxygen Flow Rate 6 I&O (Last 24 Hrs): Intake and Output Totals x24h 07/10/19 07/11/19 07/12/19 23:59 23:59 23:59 Intake Total 570 506 Output Total 800 650 Balance -230 -144 General: Alert, No acute distress HEENT: Mucous membr. moist/pink Neck: Supple Neuro: Non Focal Respiratory: No respiratory distress, Other (No stethascope available to assess breath sounds in her isolation room) Abdomen: Soft Extremities: Other (Edema) - Results Results: Laboratory Results WBC 5.1 x10^3/uL (4.8-10.8) 07/12/19 05:00 RBC 4.13 10^6/uL (4.20-5.40) L 07/12/19 05:00 Hgb 13.1 g/dL (12.0-16.0) 07/12/19 05:00 Hct 42.1 % (37.0-47.0) 07/12/19 05:00 MCV 101.9 fL (81.0-99.0) H 07/12/19 05:00 MCH 31.7 pg (27.0-31.0) H 07/12/19 05:00 MCHC 31.1 g/dL (32.0-36.0) L 07/12/19 05:00 RDW 13.4 % (12.0-15.0) 07/12/19 05:00 Plt Count 219 10^3/uL (130-450) 07/12/19 05:00 MPV 10.2 fL (7.9-10.8) 07/12/19 05:00 Neut # (Auto) 4.4 10^3/uL (1.5-6.6) 07/12/19 05:00 Lymph # (Auto) 0.6 10^3/uL (1.5-3.5) L 07/12/19 05:00 [place] # (Auto) 0.1 10^3/uL (0.0-1.0) 07/12/19 05:00 Eos # (Auto) 0.0 10^3/uL (0.0-0.7) 07/12/19 05:00 Baso # (Auto) 0.0 10^3/uL (0.0-0.1) 07/12/19 05:00 Absolute Nucleated RBC 0.00 x10^3/uL 07/12/19 05:00 Nucleated RBC % 0.0 /100WBC 07/12/19 05:00 PT 14.9 secs (9.9-12.6) H 07/12/19 05:00 INR 1.3 (0.8-1.2) H 07/12/19 05:00 Sodium 139 mmol/L (135-145) 07/12/19 05:00 Potassium 4.0 mmol/L (3.5-5.0) 07/12/19 05:00 Chloride 104 mmol/L (101-111) 07/12/19 05:00 Carbon Dioxide 29 mmol/L (21-32) 07/12/19 05:00 Anion Gap 6.0 (6-13) 07/12/19 05:00 BUN 32 mg/dL (6-20) H 07/12/19 05:00 Creatinine 0.5 mg/dL (0.4-1.0) 07/12/19 05:00 Estimated GFR (MDRD) 117 (>89) 07/12/19 05:00 Glucose 139 mg/dL (70-100) H 07/12/19 05:00 POC Whole Bld Glucose 84 mg/dL (70 - 100) 07/11/19 11:04 Glycated Hemoglobin 6.2 % (4.6-6.2) 07/11/19 05:40 Estim Average Glucose 131 (70-100) H 07/11/19 05:40 Calcium 8.3 mg/dL (8.5-10.3) L 07/12/19 05:00 Total Bilirubin 1.0 mg/dL (0.2-1.0) 07/11/19 05:30 AST 40 IU/L (10-42) 07/11/19 05:30 ALT 30 IU/L (10-60) 07/11/19 05:30 Alkaline Phosphatase 58 IU/L (42-121) 07/11/19 05:30 Troponin I High Sens 31.5 ng/L (2.3-14.8) H* 07/11/19 12:06 B-Natriuretic Peptide 3896 pg/mL (5-100) H 07/12/19 05:00 Total Protein 7.5 g/dL (6.7-8.2) 07/11/19 05:30 Albumin 3.2 g/dL (3.2-5.5) 07/11/19 05:30 Globulin 4.3 g/dL (2.1-4.2) H 07/11/19 05:30 Albumin/Globulin Ratio 0.7 (1.0-2.2) L 07/11/19 05:30 Lipase 44 U/L (22-51) 07/11/19 05:30
[2019-07-13] MEDS: SODIUM CHLORIDE FLUSH 0.9% 10 ML SYRINGE IVP SCH ×2 (02:05→09:58)
[2019-07-13 05:12] LABS: BASOPHILS % (AUTO) 0.1 %; HGB - HEMOGLOBIN 13.9 g/dL (12.0-16.0); LYMPHOCYTES # (AUTO) 0.6 10^3/uL (1.5-3.5); LYMPHOCYTES % (AUTO) 7.8 %; MEAN CORPUSCULAR HGB CONC 32.7 g/dL (32.0-36.0); MEAN CORPUSCULAR VOLUME 103.9 fL (81.0-99.0); MEAN PLATELET VOLUME 9.9 fL (7.9-10.8); MONOCYTES # (AUTO) 0.2 10^3/uL (0.0-1.0); MONOCYTES % (AUTO) 2.9 %; NEUTROPHILS # (AUTO) 7.1 10^3/uL (1.5-6.6); NEUTROPHILS % (AUTO) 88.7 %; PLT - PLATELET COUNT 210 10^3/uL (130-450); RED BLOOD COUNT 4.09 10^6/uL (4.20-5.40); RED CELL DISTRIBUTION WIDTH 13.3 % (12.0-15.0)
[2019-07-13 05:19] LABS: INR 1.3 (0.8-1.2); PT - PROTHROMBIN TIME 14.6 secs (9.9-12.6)
[2019-07-13 05:21] LABS: CALCIUM 8.4 mg/dL (8.5-10.3); CREATININE 0.5 mg/dL (0.4-1.0)
[2019-07-13] MEDS: methylPREDNISolone SUCCINATE 40 MG/ML VIAL IVP SCH (05:44)
[2019-07-13] MEDS: SODIUM CHLORIDE FLUSH 0.9% 10 ML SYRINGE IVP PRN ×3 (05:50→06:00)
[2019-07-13] MEDS: FUROSEMIDE 20 MG/2 ML VIAL IVP SCH (05:51)
[2019-07-13 07:54] VITALS: BP 117/67
[2019-07-13] MEDS: FAMOTIDINE 20 MG TABLET PO SCH (09:58)
[2019-07-13] MEDS: METOPROLOL SUCCINATE 25 MG TABLET PO SCH (09:58)
[2019-07-13] MEDS: ENOXAPARIN 30 MG/0.3 ML SYRINGE SUBQ SCH (09:58)
[2019-07-13] MEDS: ESCITALOPRAM 10 MG TABLET PO SCH (09:58)
--- NOTE | 2019-07-13 11:28 | Discharge Plan ---
Discharge Plan Problem Reviewed?: Yes Disposition: 50 Hospice/Home DC/Xfer Condition: Fair Diet: Regular Activity Restrictions: Activity as Tolerated Health Concerns: Admitted with respiratory failure, from pulmonary fibrosis and Cor Pulmonale. Seen by Palliative Care TRACK EQUIPMENT OPERATOR, and is being accepted into Hospice and being discharged to her home under Hospice Care. Plan of Treatment: As above. Care Goals: As above. Assessment: Orders to discharge home and arrangements as per recommendations from Palliative Care TRACK EQUIPMENT OPERATOR. No Smoking: If you smoke, Please STOP! Call for help. Follow-up with: Karen Riggs PA [Primary Care Provider] -
--- NOTE | 2019-07-13 11:31 | DISCHARGE SUMMARY ---
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 Pt is alert and she can provide partial history. she reported feeling very shortness of breath when she has any exertion or even went to get into the bed. Per ER provider report, patient's daughter reported that patient has been declining gradually, she is bedbound, incontinent, requires to have care giving for her activities of daily living. Pt was found to be saturating in the 60's per EMS. Per EMS report, they placed the pt on 8LPM NRB w/O2 sat improving to 98%. Pt arrives in the floor with some distress on speaking full sentences and mild tachypnic. Patient denies any pain, fever, chill, nausea or vomiting or diarrhea. Now that she is on the nonrebreather she states that her breathing feels better than before. Family has been pursuing palliative care and have received the referral from PCP but have not established yet. Patient has a POLST in pt's daughter's hand which was reviewed by ER provider on the phone which states DNR/DNI with limited intervention. - HOSPITAL COURSE Hospital Course: (1) Respiratory failure with hypoxia She presented with severe SOB with minimal exertion and required 13 liter of O2 initially in ER (pt usually on 5 liter of O2 at home). She was treated with n ebs, iv diuretics and her meds were resumed, as it was ascertained the following morning, by Leslie Pappas NP in doing her Palliative Care consult, that the patient had stopped taking her meds. Since the pt had lymphocytopenia, a Covid- 19 test was sent and isolation precautions followed. The test result was pending at discharge, but subsequently has resulted NEGATIVE. (2) Pulmonary fibrosis Pt has hx of severe pulmonary fibrosis, presented with severe SOB plus desatur ations, and family was seeking palliative/hospice care, thus we consulted. She was seen By Leslie Pappas NP and was accepted to her home under Hospice Care. (3) Cor pulmonale She has hx of right heart failure due to severe pulmonary fibrosis. Her BNP is over 3400. Since the family requested palliative/hospice care now, no Echo was done. The ER started Lasix, which was continued. (4) Elevated troponin Twice the troponin test was "flat" though slight elevated. Pt denied chest pain. (5) HTN (hypertension) Stable, when resumed home meds. (6) Depression Stable, on home Lexapro - ALLERGIES Allergies/Adverse Reactions: Allergies Allergy/AdvReac Type Severity Reaction Status Date / Time codeine Allergy Unknown Verified 07/11/19 04:23 Penicillins Allergy Unknown Verified 07/11/19 04:23 Sulfa (Sulfonamide Allergy Rash Verified 07/11/19 04:23 Antibiotics) sulfamethoxazole Allergy Unknown Verified 07/11/19 04:23 [From ] trimethoprim [From ] Allergy Unknown Verified 07/11/19 04:23 - MEDICATIONS Home Medications: Ambulatory Orders Medication Instructions Recorded Confirmed Metoprolol Tartrate 12.5 mg DAILY 07/22/15 07/11/19 Multivitamin [Multivitamins] 1 tab DAILY 07/22/15 07/11/19 Omeprazole [PriLOSEC] 20 mg PO DAILY 07/22/15 07/11/19 Escitalopram [Lexapro] 10 mg PO DAILY 12/05/17 07/11/19 Pramipexole [Mirapex] 0.25 mg PO HS #30 tablet 04/22/19 07/11/19 Atorvastatin Calcium 20 mg PO QPM 07/11/19 07/11/19 Spironolactone [Aldactone] 12.5 mg PO DAILY 07/11/19 07/11/19 ursodioL [[place] 250] 250 mg PO TIDWM 07/11/19 07/11/19 - PHYSICAL EXAM AT DISCHARGE General Appearance: positive: No acute distress, Other (Wearing oximizer in nose) Eyes Bilateral: positive: EOMI ENT: positive: Other (Cachectic with muscle wasting) Neck: positive: Other (Supple) Respiratory: positive: Other (Diminished breath sounds) Cardiovascular: positive: Regular rate & rhythm Skin: positive: Warm Neurologic/Psychiatric: positive: Other (Some edema present) - LABS Result Diagrams: 07/13/19 04:55 07/13/19 04:55 - DIAGNOSTIC IMAGING Diagnostic Imaging Results: Final report reviewed - FOLLOW UP Follow Up: [facility]; she was accepted by Hospice. - TIME SPENT Time Spent in Discharge (Minutes): 35
== END 2019-07-13 14:32 | disposition hospice, home (50) | DRG 189 ==
LOC: EDUNIT# → ED 04:08 → MS2 08:06
PROVIDERS: ADMIT Nurse Practitioner Gerontology; ATTEND Internal Medicine
DX: J96.21 Acute and chronic respiratory failure with hypoxia (principal); J70.3 Chronic drug-induced interstitial lung disorders; T45.1X5D Adverse effect of antineoplastic and immunosuppressive drugs, subsequent encounter; I27.81 Cor pulmonale (chronic); E78.00 Pure hypercholesterolemia, unspecified; I11.0 Hypertensive heart disease with heart failure; I50.810 Right heart failure, unspecified; E11.9 Type 2 diabetes mellitus without complications; E78.5 Hyperlipidemia, unspecified; F32.9 Major depressive disorder, single episode, unspecified; D72.810 Lymphocytopenia; R32 Unspecified urinary incontinence; K21.9 Gastro-esophageal reflux disease without esophagitis; R79.89 Other specified abnormal findings of blood chemistry; L40.9 Psoriasis, unspecified; Z51.5 Encounter for palliative care; Z66 Do not resuscitate; Z91.14 Patient's other noncompliance with medication regimen; Z74.01 Bed confinement status; Z79.84 Long term (current) use of oral hypoglycemic drugs; Z79.01 Long term (current) use of anticoagulants
CPT/HCPCS: 36415; 71045; 80048; 80053; 83036; 83690; 83880; 84484; 85025; 85610; 93005; 94640; 96374; 99222; 99284; 99285; A9270; J1650; J7626

== ENCOUNTER 2019-07-13 14:32 | Outpatient (CLI) | payer MEDICARE, BC | END 2019-07-13 14:33 | disposition hospice, home (50) | LOC: EMS 14:32 | PROVIDERS: ATTEND Surgery | DX: J96.90 Respiratory failure, unspecified, unspecified whether with hypoxia or hypercapnia (principal) | CPT/HCPCS: A0425; A0429 ==